=== PATIENT | female | born 1995 | race Caucasian/White ===

== ENCOUNTER → 2017-10-16 15:00 | Outpatient (CLI) | payer BC, SELFPAY ==
--- NOTE | 2017-10-16 15:03 | RAD_ITS ---
STUDY: X-RAY - RIGHT RADIUS AND ULNA REASON FOR EXAM: Female, 22 years old. Pain following a fall. TECHNIQUE: 2 view(s) of the forearm. COMPARISON: None. FINDINGS: There is no demonstrated soft tissue swelling. Normal visualized radius. Normal visualized ulna. RAD/Forearm 2 Views IMPRESSION: Normal x-ray examination of the radius and ulna. Electronically Signed: Ralph Terrazas MD at 15:19 EDT Tel [phone], Service support ,
--- NOTE | 2017-10-16 15:03 | RAD_ITS ---
STUDY: X-RAY - RIGHT WRIST REASON FOR EXAM: Female, 22 years old. Pain following a fall. TECHNIQUE: 3 view(s) of the wrist were obtained. COMPARISON: None. FINDINGS: Normal visualized distal radius and ulna. Normal radiocarpal articulation. Normal distal radioulnar articulation. Normal carpal bones. Normal carpal articulations. Normal carpometacarpal articulation of the thumb. Normal second through fifth carpometacarpal articulations. Normal visualized metacarpal bones. The soft tissue structures are unremarkable. RAD/Wrist min 3 Views IMPRESSION: Normal x-ray examination of the wrist. Electronically Signed: Ralph Terrazas MD at 15:20 EDT Tel [phone], Service support ,
== END ==
PROVIDERS: Family Provider Family Medicine; PCP Family Medicine; Visit Provider Physician Assistant Surgical
DX: S40.021A Contusion of right upper arm, initial encounter (principal)
CPT/HCPCS: 73090; 73110

== ENCOUNTER → 2018-01-30 14:48 | Outpatient (CLI) | payer BC, SELFPAY ==
[2018-02-05 13:22] LABS: HPV Reflexed? NOT INDICATED
== END ==
PROVIDERS: Visit Provider Obstetrics & Gynecology
DX: Z12.4 Encounter for screening for malignant neoplasm of cervix (principal)
CPT/HCPCS: 88175; G0145

== ENCOUNTER → 2018-12-17 14:02 | Outpatient (CLI) | payer BC, SELFPAY ==
[2018-12-16 16:26] VITALS: BMI 27.3
== END ==
PROVIDERS: Family Provider Family Medicine; PCP Family Medicine; Referring Provider Physician Assistant; Visit Provider Physician Assistant
DX: J02.9 Acute pharyngitis, unspecified (principal)
CPT/HCPCS: 87081

== ENCOUNTER → 2020-08-07 10:03 | Outpatient (CLI) | payer BC, SELFPAY ==
[2020-02-26 15:07] VITALS: BMI 27.3
[2020-08-07 11:22] LABS: hCG Titer Quant., Serum 101 mIU/mL (1-3)
== END ==
PROVIDERS: PCP Family Medicine; Referring Provider Obstetrics & Gynecology; Visit Provider Obstetrics & Gynecology
DX: Z32.01 Encounter for pregnancy test, result positive (principal); N92.6 Irregular menstruation, unspecified
CPT/HCPCS: 36415; 84702

== ENCOUNTER → 2020-08-09 10:13 | Outpatient (CLI) | payer BC, SELFPAY ==
[2020-02-26 15:07] VITALS: BMI 27.3
[2020-08-09 12:20] LABS: hCG Titer Quant., Serum 278 mIU/mL (1-3)
== END ==
PROVIDERS: PCP Family Medicine; Referring Provider Obstetrics & Gynecology; Visit Provider Obstetrics & Gynecology
DX: N92.6 Irregular menstruation, unspecified (principal)
CPT/HCPCS: 36415; 84702

== ENCOUNTER → 2020-08-21 11:18 | Outpatient (CLI) | payer BC, SELFPAY ==
[2020-02-26 15:07] VITALS: BMI 27.3
[2020-08-21 12:39] LABS: hCG Titer Quant., Serum 31190 mIU/mL (1-3)
== END ==
PROVIDERS: PCP Family Medicine; Referring Provider Nurse Practitioner Women's Health; Visit Provider Nurse Practitioner Women's Health
DX: O20.9 Hemorrhage in early pregnancy, unspecified (principal); Z3A.00 Weeks of gestation of pregnancy not specified
CPT/HCPCS: 36415; 84702

== ENCOUNTER → 2020-08-23 13:26 | Outpatient (CLI) | payer BC, SELFPAY ==
[2020-02-26 15:07] VITALS: BMI 27.3
--- NOTE | 2020-08-23 13:30 | US_ITS ---
INDICATION: viability/dating EXAMINATION: Ultrasound US OB Transvaginal TECHNIQUE: Transabdominal pelvic ultrasound was performed. Grayscale, spectral waveform, and color flow Doppler evaluation of the adnexa. COMPARISON: None. LMP: [Unknown Beta-hCG: Unknown FINDINGS: UTERUS: 8.7 x 6.0 x 4.8 cm. RIGHT OVARY: 2.4 x 1.8 x 1.6 cm. Normal. LEFT OVARY: 2.5 x 2.2 x 1.7 cm. Normal. FREE FLUID: None. INTRAUTERINE GESTATIONAL SAC: 1.9 cm, consistent with 6 weeks 5 days, mean gestational age. YOLK SAC: Identified 3 mm POLE: Identified CRL 4 mm, consistent with 6 weeks 1 day, mean gestational age. HEART MOTION: 101 bpm. PLACENTA: Not visualized due to age. SUBCHORIONIC HEMORRHAGE: None. AMNIOTIC FLUID: Qualitatively normal. US/Transvaginal w/Preg US IMPRESSION: Single live intrauterine . Estimated gestational age is 6 weeks 3 days mean gestational age.. Electronically Signed: Finn Borjas MD at 14:33 EDT Tel , Service support ,
== END ==
PROVIDERS: PCP Family Medicine; Referring Provider Nurse Practitioner Women's Health; Visit Provider Nurse Practitioner Women's Health
DX: O20.0 Threatened abortion (principal); Z3A.00 Weeks of gestation of pregnancy not specified
CPT/HCPCS: 36415; 76817; 86850; 86900; 86901

== ENCOUNTER → 2020-09-09 15:54 | Outpatient (CLI) | payer BC, SELFPAY ==
[2020-09-09 14:33] VITALS: BMI 32.4
[2020-09-09 18:04] LABS: Amphetamine Urine VISTA NEGATIVE (<1000 ng/mL); Barbiturate Urine VISTA NEGATIVE (< 200 ng/mL); Benzodiazepine Urine VISTA NEGATIVE (< 200 ng/mL); Cocaine Urine VISTA NEGATIVE (< 300 ng/mL); Ecstacy Urine VISTA NEGATIVE (< 500 ng/mL); Methadone Urine VISTA NEGATIVE (< 300 ng/mL); PCP Urine VISTA NEGATIVE (< 25 ng/mL); THC Urine VISTA NEGATIVE (< 50 ng/mL); Vista UDS pH Range 6
[2020-09-13 07:06] LABS: Chlamydia By Nucleic Acid AMP Negative (Negative)
[2020-09-13 07:50] LABS: Gonococcus By Nucleic Acid AMP Negative (Negative)
== END ==
PROVIDERS: PCP Family Medicine; Referring Provider Obstetrics & Gynecology; Visit Provider Obstetrics & Gynecology
DX: Z34.90 Encounter for supervision of normal pregnancy, unspecified, unspecified trimester (principal)
CPT/HCPCS: 80307; 87086; 87491; 87591

== ENCOUNTER → 2020-09-24 10:07 | Outpatient (CLI) | payer BC, SELFPAY ==
[2020-09-09 14:33] VITALS: BMI 32.4
[2020-09-24 11:23] LABS: NATERA MAILED SPECIMEN
[2020-09-24 12:04] LABS: Absolute Lymphocyte Count 1.55 X10^3/uL (0.83-4.51); Absolute Neutrophil Count 4.9 X10^3/uL (2.0-7.7); Basophil# 0.02 X10^3/uL; Basophil% 0.3 % (0-1); Eosinophil# 0.14 X10^3/uL; Hematocrit 38.3 % (37-47); Hemoglobin 12.7 g/dL (12.0-15.0); Lymphocyte # 1.55 X10^3/ul (0.83-4.51); Lymphocyte % 22.1 % (19-41); Mean Corp Hgb Conc 33.2 g/dL (32-36); Mean Corpuscular Hgb 29.3 pg (27.0-32.0); Mean Corpuscular Volume 88.5 fL (81-99); Monocyte# 0.37 X10^3/uL; Monocyte% 5.3 % (0-10); NRBC Flagged by Analyzer 0 % (0-5); Neutrophil # 4.92 X10^3/uL (2.7-7.7); Neutrophil % 70.2 % (47-70); Platelet Count 246 K/mm3 (150-450); RBC Distribution Width CV 12.6 % (11.6-14.6); RBC Distribution Width SD 41.1 fl (35.1-43.9); Red Blood Count 4.33 M/mm3 (4.2-5.4)
[2020-09-24 12:21] LABS: Glucose Challenge Gest 1H 50g 157 mg/dL (70-140)
[2020-09-24 13:09] LABS: HIV - WCH Non-Reactive (Nonreactive); Hepatitis B Surface Antigen Non-Reactive (Nonreactive); Hepatitis C Antibody Non-Reactive (Nonreactive); Rubella IgG Reactive (Nonreactive); Syphilis Antibodies Non-reactive
== END ==
PROVIDERS: Obstetrics & Gynecology; PCP Family Medicine; Referring Provider Obstetrics & Gynecology; Visit Provider Obstetrics & Gynecology
DX: Z34.90 Encounter for supervision of normal pregnancy, unspecified, unspecified trimester (principal)
CPT/HCPCS: 36415; 82950; 85025; 86703; 86762; 86780; 86803; 86850; 86900; 86901; 87340

== ENCOUNTER → 2020-09-30 06:54 | Outpatient (CLI) | payer BC, SELFPAY ==
[2020-09-09 14:33] VITALS: BMI 32.4
[2020-09-30 08:11] LABS: Glucose GTT-Gestation. Fasting 92 mg/dL (<105)
[2020-09-30 09:23] LABS: Glucose GTT-Gestational 1 Hr 185 mg/dL (<190)
[2020-09-30 09:50] LABS: Glucose GTT-Gestational 2 Hr 126 mg/dL (<165)
[2020-09-30 11:40] LABS: Glucose GTT-Gestational 3 Hr 61 L (<145)
== END ==
PROVIDERS: PCP Family Medicine; Referring Provider Obstetrics & Gynecology; Visit Provider Obstetrics & Gynecology
DX: Z13.1 Encounter for screening for diabetes mellitus (principal)
CPT/HCPCS: 36415; 82951; 82952

== ENCOUNTER → 2021-01-03 17:55 | Outpatient (CLI) | payer BC, SELFPAY ==
[2020-12-30 14:31] VITALS: BMI 32.4
[2021-01-03 19:42] LABS: Probe Check PASS; Specimen Processing Control PASS
== END ==
PROVIDERS: PCP Family Medicine; Referring Provider Family Medicine; Visit Provider Family Medicine
DX: B34.9 Viral infection, unspecified (principal)
CPT/HCPCS: 87635; U0005; U0003

== ENCOUNTER → 2021-01-19 06:42 | Outpatient (CLI) | payer BC, SELFPAY ==
[2021-01-19 07:34] LABS: Glucose GTT-Gestation. Fasting 92 mg/dL (<105)
[2021-01-19 08:46] LABS: Glucose GTT-Gestational 1 Hr 203 mg/dL (<190)
[2021-01-19 09:36] LABS: Glucose GTT-Gestational 2 Hr 173 mg/dL (<165)
[2021-01-19 11:17] LABS: Glucose GTT-Gestational 3 Hr 65 L (<145)
== END ==
PROVIDERS: PCP Family Medicine; Referring Provider Obstetrics & Gynecology; Visit Provider Obstetrics & Gynecology
DX: O99.810 Abnormal glucose complicating pregnancy (principal); Z3A.00 Weeks of gestation of pregnancy not specified
CPT/HCPCS: 82951; 82952

== ENCOUNTER 2021-02-08 14:30 | Outpatient (RCR) | payer BC, SELFPAY | END 2021-02-17 23:59 | LOC: DC 14:30 | PROVIDERS: PCP Family Medicine; Visit Provider Obstetrics & Gynecology | DX: O24.419 Gestational diabetes mellitus in pregnancy, unspecified control (principal); Z3A.00 Weeks of gestation of pregnancy not specified | CPT/HCPCS: 97802; G0108 ==

== ENCOUNTER → 2021-02-11 16:32 | Outpatient (CLI) | payer BC, SELFPAY ==
[2021-02-11 17:00] LABS: Absolute Lymphocyte Count 2.38 X10^3/uL (0.83-4.51); Absolute Neutrophil Count 8.9 X10^3/uL (2.0-7.7); Basophil# 0.03 X10^3/uL; Basophil% 0.2 % (0-1); Eosinophil# 0.29 X10^3/uL; Eosinophils% 2.3 % (0-5); Hematocrit 34.6 % (37-47); Hemoglobin 11.3 g/dL (12.0-15.0); Lymphocyte # 2.38 X10^3/ul (0.83-4.51); Lymphocyte % 18.9 % (19-41); Mean Corp Hgb Conc 32.7 g/dL (32-36); Mean Corpuscular Hgb 29.8 pg (27.0-32.0); Mean Corpuscular Volume 91.3 fL (81-99); Mean Platelet Vol. 9.1 fl (6.2-12.0); Monocyte# 0.87 X10^3/uL; Monocyte% 6.9 % (0-10); NRBC Flagged by Analyzer 0 % (0-5); Neutrophil # 8.94 X10^3/uL (2.7-7.7); Neutrophil % 71.3 % (47-70); Platelet Count 246 K/mm3 (150-450); RBC Distribution Width CV 13.4 % (11.6-14.6); RBC Distribution Width SD 44.6 fl (35.1-43.9); Red Blood Count 3.79 M/mm3 (4.2-5.4); White Blood Count 12.6 K/mm3 (4.4-11.0)
== END ==
PROVIDERS: PCP Family Medicine; Visit Provider Obstetrics & Gynecology
DX: Z34.01 Encounter for supervision of normal first pregnancy, first trimester (principal)
CPT/HCPCS: 36415; 85025

== ENCOUNTER → 2021-02-25 16:05 | Outpatient (CLI) | payer BC, SELFPAY ==
--- NOTE | 2021-02-25 16:10 | US_ITS ---
STUDY: SECOND AND THIRD TRIMESTER OBSTETRICAL ULTRASOUND - LIMITED REASON FOR EXAM: Female, 25 years old. growth. LMP: 07/02/2019 PRIOR ULTRASOUND: 08/23/2020 TECHNIQUE: Transabdominal TECHNICAL QUALITY: Adequate. FINDINGS: There is a single intrauterine fetus. The fetus is in a cephalic presentation. There is demonstrated cardiac activity with a heart rate of 136 bpm. There is a normal amniotic fluid volume. The largest amniotic fluid pocket measures 4.72 cm. The amniotic fluid index (THIAGO) is 12.92 cm. The placenta is posterior in location and is not low lying. There are Grade 0 placental changes. The cervix measures 4.78 cm cm in length. BIOMETRY: BPD: 8.46 cm: 34 weeks, 0 days HC: 31.25 cm: 34 weeks, 6 days AC: 28.86 cm: 32 weeks, 6 days FL: 6.18 cm: 32 weeks, 0 days age by LMP: 34 weeks, 0 days. RAYMOND by LMP. 04/08/2021 age by prior US: 33 weeks, 0 days. RAYMOND by prior US: 07/16/2020. age by current US: 33 weeks, 3 days. RAYMOND by current US: 04/12/2021. Estimated weight: 2079 grams, +/- 320 grams, 47 percentile. Gender: Indeterminant US/OB Limited With Biometrics IMPRESSION: 1. Live single intrauterine at 33 weeks, 3 days. RAYMOND is 04/12/2021. There is adequate interval growth since the prior ultrasound. 2. EFW of 2079 g. 3. THIAGO of 12.92 cm. 4. Posterior grade 0 placenta. 5. Vertex presentation. Electronically Signed: Donnie Desai DO at 17:15 EDT Tel [phone], Service support ,
== END ==
PROVIDERS: PCP Family Medicine; Referring Provider Obstetrics & Gynecology; Visit Provider Obstetrics & Gynecology
DX: O24.410 Gestational diabetes mellitus in pregnancy, diet controlled (principal); Z3A.33 33 weeks gestation of pregnancy
CPT/HCPCS: 76816

== ENCOUNTER → 2021-03-16 12:12 | Outpatient (CLI) | payer BC, SELFPAY | PROVIDERS: PCP Family Medicine; Visit Provider Obstetrics & Gynecology | DX: O26.899 Other specified pregnancy related conditions, unspecified trimester (principal); N89.8 Other specified noninflammatory disorders of vagina; Z3A.00 Weeks of gestation of pregnancy not specified | CPT/HCPCS: 87070; 87077; 87186; 87205 ==

== ENCOUNTER → 2021-03-25 17:01 | Outpatient (CLI) | payer BC, SELFPAY ==
--- NOTE | 2021-03-25 17:06 | US_ITS ---
STUDY: SECOND AND THIRD TRIMESTER OBSTETRICAL ULTRASOUND - LIMITED REASON FOR EXAM: Female, 25 years old GROWTH LMP: 07/02/2019. PRIOR ULTRASOUND: 08/23/2020 and 02/26/2012. TECHNIQUE: Transabdominal TECHNICAL QUALITY: Adequate. FINDINGS: There is a single intrauterine fetus. The fetus is in a cephalic presentation. There is demonstrated cardiac activity with a heart rate of 121 bpm. There is a normal amniotic fluid volume. The largest amniotic fluid pocket measures 7.67 cm. The amniotic fluid index (THIAGO) is 18.33 cm. The placenta is posterior in location and is not low lying. There are Grade 0 placental changes. The cervix is obscured. BIOMETRY: BPD: 9.31 cm: 37 weeks, 5 days HC: 32.84 cm: 37 weeks, 2 days AC: 33.24 cm: 37 weeks, 1 days FL: 6.75 cm: 34 weeks, 4 days Age by LMP: 38 weeks, 0 days. RAYMOND by LMP: 04/08/2021. age by initial US: 37 weeks, 0 days. RAYMOND by initial US: 04/15/2021. age by current US: 37 weeks, 1 days. RAYMOND by current US: 04/14/2021. Estimated weight: 3026 grams, +/- 454 grams, 56 percentile. Gender: Indeterminant US/OB Limited With Biometrics IMPRESSION: 1. Live single intrauterine at 37 weeks, 1 day. RAYMOND is 04/14/2021. There is adequate interval growth since the initial ultrasound. 2. EFW of 3026 g. This is at the 54th percentile. 3. THIAGO of 18.33 cm. 4. Posterior grade 0 placenta. 5. Vertex presentation. Electronically Signed: Donnie Desai DO at 15:57 EDT Tel [phone], Service support ,
== END ==
PROVIDERS: PCP Family Medicine; Referring Provider Obstetrics & Gynecology; Visit Provider Obstetrics & Gynecology
DX: O36.5930 Maternal care for other known or suspected poor fetal growth, third trimester, not applicable or unspecified (principal); Z3A.37 37 weeks gestation of pregnancy
CPT/HCPCS: 76816

== ENCOUNTER 2021-04-06 03:00 | Inpatient (IN) | payer BC, SELFPAY ==
[2021-04-06] VITALS (85 sets, daily range): BP systolic 118–179; BP diastolic 59–94; PULSE 86–135; TEMP 35.7–37.3; O2SAT 73–100; BMI 35.9
[2021-04-06] MEDS: Lactated Ringers 1,000 ML 50 ML IV (03:25)
[2021-04-06 03:26] LABS: Bedside Glucose 98 mg/dL (70-110)
[2021-04-06 03:49] LABS: Absolute Lymphocyte Count 2.57 X10^3/uL (0.83-4.51); Absolute Neutrophil Count 7.8 X10^3/uL (2.0-7.7); Basophil# 0.02 X10^3/uL; Basophil% 0.2 % (0-1); Eosinophils% 2.6 % (0-5); Hematocrit 32.6 % (37-47); Hemoglobin 10.6 g/dL (12.0-15.0); Lymphocyte # 2.57 X10^3/ul (0.83-4.51); Lymphocyte % 22.3 % (19-41); Mean Corp Hgb Conc 32.5 g/dL (32-36); Mean Corpuscular Hgb 28.9 pg (27.0-32.0); Mean Corpuscular Volume 88.8 fL (81-99); Mean Platelet Vol. 9.9 fl (6.2-12.0); Monocyte# 0.81 X10^3/uL; NRBC Flagged by Analyzer 0 % (0-5); Neutrophil # 7.77 X10^3/uL (2.7-7.7); Neutrophil % 67.4 % (47-70); Platelet Count 223 K/mm3 (150-450); RBC Distribution Width CV 14.1 % (11.6-14.6); RBC Distribution Width SD 45.6 fl (35.1-43.9); Red Blood Count 3.67 M/mm3 (4.2-5.4); White Blood Count 11.5 K/mm3 (4.4-11.0)
--- NOTE | 2021-04-06 05:23 | HP.PCM.OB_ITS ---
HPI - General General Date of Admission: 04/06/21 HPI Narrative HENRRY ESCAMILLA, is a 25 F who presents IAL with clear SROM. Upon evaluation she was 2 cm and then may change to 3. She is having irregular contractions with clear fluid denies any vaginal bleeding admits good movement. Blood sugars within normal range. Maternal Data Information RAYMOND Calculator Estimated Delivery Date Method Current WG Current Estimate 04/17/21 Ultrasound #1 38w 3d Other Estimates 04/08/21 LMP (Uncertain) 39w 5d PFSH PFSH Medical History Anxiety Gestational diabetes Positive GBS test PVC (premature ventricular contraction) Home Medications multivitamin no.47-iron fum 27 mg-folate no.1 1 mg-dha 300 mg capsule 1 cap PO DAILY 09/03/20 [History Last Taken 04/05/21] flash glucose sensor [FreeStyle Adeel 2 Sensor] 04/06/21 [History Last Taken Unknown] Allergy/AdvReac Type Severity Reaction Status Date / Time No Known Allergies Allergy Verified 03/16/21 10:44 Family History Sister Cancer Thyroid Other A-fib Diabetes Multiple sclerosis Surgical History H/O lymph node biopsy Social History household members: spouse housing: house current occupational status: employed current occupation: [employer] in [place] Smoking Status: Never smoker second hand exposure: No alcohol intake: current alcohol intake frequency: a few times a month details: social substance use type: does not use caffeine: Yes what type of physical activity do you participate in: walking seatbelt use: always do you feel safe at home: Yes additional social history: Guadalupe Ambrocio Patient is an RN for [employer] History 1 Elective abortions Hx Para 0 Spontaneous abortions Hx # Term Pregnancies Ectopic pregnancies Hx # Pregnancies Multiple births # of living children Visit Details Expected Delivery Route/Plan Labor Preferences- CB/BF classes:yes labor support person: mariela barber labor intervention preferences: pain management options preferred: open to epidural cut cord/dad catch: yes : yes PP control planned: [] discussed possible routes of delivery and associated risks: [] special requests: [] Plans covid vaccine: moderna flu vaccine: given tdap vaccine: given rhogam: na LARC form signed: declined movement and labor precautions reviewed. Problem list reviewed and updated with the most current plan of care details and appropriate orders placed. Relevant counseling for the gestational age provided. Continue routine care and follow up unless otherwise noted in visit notes/problem list details OB Flowsheet Initial Weight: 195 lb Date -?-?-?-?-?-?-?-?-?-?-?-?- EGA Weight BP Urine Prot -?-?-?-?-?-?-?-?-?-?-?-?- Glucose FHR FuHt Pres Dilation -?-?-?-?-?-?-?-?-?-?-?-?- Effaced St Visit Note 09/09/20 -?-?-?-?-?-?-?-?-?-?-?-?- 8w 4d 195 lb (+0 oz) 122/90 -?-?-?-?-?-?-?-?-?-?-?-?- 180 -?-?-?-?-?-?-?-?-?-?-?-?- GP - CRL consist ent with prior US. 10/04/20 -?-?-?-?-?-?-?-?-?-?-?-?- 12w 1d 195 lb 2 oz (+2 oz) 100/80 Negative -?-?-?-?-?-?-?-?-?-?-?-?- Negative -?-?-?-?-?-?-?-?-?-?-?-?- 11/05/20 -?-?-?-?-?-?-?-?-?-?-?-?- 16w 5d 196 lb 8 oz (+1 lb 8 oz) 118/70 Negative -?-?-?-?-?-?-?-?-?-?-?-?- Negative 150 -?-?-?-?-?-?-?-?-?-?-?-?- SM- no vb lof cr amping, needs anatomy US 12/03/20 -?-?-?-?--?-?-?-?-?-?-?-?- 20w 5d 199 lb (+4 lb) 122/80 Negative -?-?-?-?-?-?-?-?-?-?-?-?- Negative 150 -?-?-?-?-?-?-?-?-?-?-?-?- GP - no LOF, VB, DFM, ctx. Prescribed zofran and scopolamine because going to [place] and worried about motion sickness. 12/30/20 -?-?-?-?-?-?-?-?-?-?-?-?- 24w 4d 202 lb (+7 lb) 102/80 -?-?-?-?-?-?-?-?-?-?-?-?- 140 24 -?-?-?-?-?-?-?-?-?-?-?-?- GP - no LOF, VB, DFM, ctx. Repeat 3h GCT and CBC ordered. 01/28/21 -?-?-?-?-?-?-?-?-?-?-?-?- 28w 5d 208 lb (+13 lb) 120/84 -?-?-?-?-?-?-?-?-?-?-?-?- 135 30 -?-?-?--?-?-?-?-?-?-?-?-?- SM- no vb lof go od fm nor egular ctx BS wel lcontrolled. 02/11/21 -?-?-?-?-?-?-?-?-?-?-?-?- 30w 5d 207 lb 4 oz (+12 lb 4 oz) 130/88 Negative -?-?-?-?-?-?-?-?-?-?-?-?- Negative 130 31 -?-?-?-?-?-?-?-?-?-?-?-?- GP - no LOF, VB, DFM, ctx. Discussed growth US with GDM and typical timing of delivery. 02/25/21 -?-?-?-?-?-?-?-?-?-?-?-?- 32w 5d 211 lb (+16 lb) 100/64 -?-?-?-?-?-?-?-?-?-?-?-?- 130 33 -?-?-?-?-?-?-?-?-?-?-?-?- GP - no LOF, VB, DFM, ctx. Growth US today. BGTs remain well controlled with diet. 03/10/21 -?-?-?-?-?-?-?-?-?-?-?-?- 34w 4d 212 lb 4 oz (+17 lb 4 oz) 130/86 Negative -?-?-?-?-?-?-?-?-?-?-?-?- Negative 130 135 35 -?-?-?-?-?-?-?-?-?-?-?-?- SM- no vb lof go od fm no reuglar ctx 03/16/21 -?-?-?-?-?-?-?-?-?-?-?-?- 35w 3d 217 lb (+22 lb) 138/84 Negative -?-?-?-?-?-?-?-?-?-?-?-?- Negative 145 36 Cephalic -?-?-?-?-?-?-?-?-?-?-?-?- 0 JV- no v aginal bleeding, +vaginal discharge without odor. Vaginitis screen ordered. Pt reassured of physiologic discharge. GBS next visit. 03/21/21 -?-?-?-?-?-?-?-?-?-?-?-?- 36w 1d 218 lb (+23 lb) 138/100 122/84 -?-?-?-?-?-?-?-?-?-?-?-?- 135 37 Cephalic 1 -?-?-?-?-?-?-?-?-?-?-?-?- SM- no vb lof go od fm nor egular ctx 03/30/21 -?-?-?-?-?-?-?-?-?-?-?-?- 37w 3d 222 lb (+27 lb) 122/84 Negative -?-?-?-?-?-?-?-?-?-?-?-?- Negative 135 38 Cephalic 1 -?-?-?-?-?-?-?-?-?-?-?-?- SM- no vb lof go od fm no reuglar ctx 04/06/21 -?-?-?-?-?-?-?-?-?-?-?-?- 38w 3d 223 lb (+28 lb) 139/92 146/91 -?-?-?-?-?-?-?-?-?-?-?-?- -?-?-?-?-?-?-?-?-?-?-?-?- NST FHR Rate Baby A Baseline: 130 Variability:: Moderate Accelerations:: 15 x 15 Decelerations:: None NST Reactive:: Yes FHR Category:: Category I Uterine Activity:: q3-5 ROS Constitutional Constitutional: Reports systems reviewed and no addt'l complaints, except as documented ENT HEENT: Reports systems reviewed and no addt'l complaints, except as documented Cardiovascular Cardiovascular: Reports systems reviewed and no addt'l complaints, except as documented Respiratory/Chest Respiratory/Chest: Reports systems reviewed and no addt'l complaints, except as documented Gastrointestinal Gastrointestinal: Reports systems reviewed and no addt'l complaints, except as documented and nausea; Denies abdominal pain Genitourinary Genitourinary: Reports systems reviewed and no addt'l complaints, except as documented, contractions Details: present and frequency (regular ) and movement Details: present Musculoskeletal Musculoskeletal: Reports systems reviewed and no addt'l complaints, except as documented Integumentary Integumentary: Reports as per HPI Neurologic Neurologic: Reports systems reviewed and no addt'l complaints, except as documented Endocrine Endocrinology: Reports systems reviewed and no addt'l complaints, except as documented Vital Signs Vital Signs Vital Signs: 04/06/21 02:50 04/06/21 03:14 04/06/21 03:15 Temperature Temperature Source Temporal Pulse Rate 96 93 98 Blood Pressure 139/92 H 146/91 H BP Systolic 139 146 BP Diastolic 92 91 Pulse Ox 99 04/06/21 03:16 Temperature 98.6 F Temperature Source Pulse Rate Blood Pressure BP Systolic BP Diastolic Pulse Ox Weight Weight: 223 lb Body Mass Index (BMI) 35.9 Physical Exam Const alert, oriented x3 and healthy appearing Constitutional Narrative: uncomfortable with contractions HEENT normocephalic and moist oral mucous membranes Head and Scalp: atraumatic Neck full ROM, no lymphadenopathy, supple and thyroid normal General: trachea midline Thyroid: thyroid normal Lymph Lymphatic: no lymphadenopathy noted Chest inspection of chest normal Resp normal respiratory effort Cardio regular rate GI normal to inspection, nondistended, normoactive bowel sounds, soft to palpation and non-tender Inspection: gravid external exam normal Bimanual Exam - Vag & Uterus: uterus non-tender Manual OB Exam: estimated gestational size appropriate, presentation cephalic, dilated 3, effaced 70 and station -1 Extremity normal to inspection General Extremity: Negative for edema Skin no rashes or lesions noted Neuro deep tendon reflexes 2+ bilaterally Motor Exam: strength 5/5 throughout and clonus absent Psych mental status grossly normal Labs Labs Labs: Blood Type O POSITIVE Antibody Screen NEGATIVE Hct 32.6 % (37-47) L Hgb 10.6 g/dL (12.0-15.0) L Obstetrics US Syphilis Total Ab Non-reactive VZV IgG Antibody 0.94 index (Immune >1.09-) L Rubella IgG Antibody Reactive (Nonreactive) Hep Bs Antigen Non-Reactive (Nonreactive) Neisseria gonorrhoeae DNA (SANDRA) Negative (Negative) HIV 1&2 Antibody Non-Reactive (Nonreactive) Glucose 1 Hr 50 gm 157 mg/dL (70-140) H Assessment & Plan (1) Group beta Strep positive: COMMENT: pcn planned (2) Gestational diabetes: QUALIFIERS: Gestational diabetes mellitus control: diet-controlled Trimester: third trimester Qualified Code(s): O24.410 - Gestational diabetes mellitus in , diet controlled COMMENT: Follows with Dr. Leiva. Diet controlled. Growths ordered at 32 and 36w. 03/26 growth/THIAGO nl plan IOL 04/18 (3) Supervision of normal : QUALIFIERS: Normal : normal first Trimester: first trimester Qualified Code(s): Z34.01 - Encounter for supervision of normal first , first trimester COMMENT: PRR RAYMOND: 04/17/21 cisco Mason Spouse: Naomibalaji (4) : QUALIFIERS: Weeks of gestation: 37 weeks Qualified Code(s): Z3A.37 - 37 weeks gestation of COMMENT: nl genetics (male) , declines carrier and afp; NL anatomy (5) Anxiety: COMMENT: currently not on medication (6) SROM (spontaneous rupture of membranes): COMMENT: admit IAL, Pit PRN, Epi PRN. monitor blood sugars q 4 hr latent q 1 hr active
[2021-04-06] MEDS: Penicillin G 3,000,000 Units 50 ML 100 UNITS IV ×4 (08:09→20:18)
[2021-04-06] MEDS: Oxytocin 30 units/NS 500 ml 30 UNITS/500 ML IV.SOLN IV (09:43)
[2021-04-06] MEDS: Lactated Ringers 500 ML 999 ML IV (11:23)
--- NOTE | 2021-04-06 12:50 | PCM.PN.BLA ---
Progress Note pt is sitting up in bed talking through contractions. The nurse reports that she seems to be getting a little more painful and bp is slightly elevated. Pitocin is now a 8 mu/min current tracing: FHT: 140 Moderate variability reactive no decelerations category I tracing [place]: irregular Contractions reviewed tracing abnormalities since last note: none A/P: 38 weeks SROM, GBS pos -continue pnc -continue pitocin. IUPC as needed. pt is making cervical exam since this am. she is now 5-6 cm per the nurse and is due for a repeat vaginal exam in an hour.
[2021-04-06] MEDS: fentaNYL-bupivacaine (epidural) 100 ML BAG EPIDURAL ×2 (12:52→21:45)
[2021-04-06] MEDS: Lactated Ringers 1,000 ML 200 ML IV (15:29)
[2021-04-06] MEDS: 0.9% Saline Lock 10 ML Syringe IV (16:56)
--- NOTE | 2021-04-06 20:34 | PN_ITS ---
Progress Note patient is pushing and tolerating labor well. no complaints. current tracing: FHT: 150's Mild variability, early decels, category 2 tracing [place]: q2 min Contractions cx: complete/ caput +2 station reviewed tracing abnormalities since last note: changes noted and expected A/P: 38 weeks pprom, complete anticipate soon
[2021-04-06] MEDS: Oxytocin 30 units/NS 500 ml 30 UNITS/500 ML IV.SOLN 334 UNITS IV (22:29)
--- NOTE | 2021-04-06 22:38 | OP.PCM_ITS ---
Maternal Data Information RAYMOND Calculator Estimated Delivery Date Method Current WG Current Estimate 04/17/21 Ultrasound #1 38w 3d Other Estimates 04/08/21 LMP (Uncertain) 39w 5d Vaginal Delivery Maternal Presentation Maternal Presentation: Spontaneous Rupture of Membranes Type of Induction: Pitocin Operative Information Date of Procedure: 04/06/21 Pre-Operative Diagnosis: 38 weeks 3 days , PROM, gestational diabetes Post-Operative Diagnosis: 38 weeks 3 days , PROM, gestational diabetes Surgery / Procedure Performed: Spontaneous Vaginal Delivery Type of Anesthesia: Epidural Drain: Mercado to straight drain Estimated Blood Loss: 100cc Time of Delivery: 22:39 Findings Description of Procedure: Patient began pushing and delivered the head in the OA presentation. The head was delivered atraumatically. The anterior and posterior shoulders delivered without complication followed by the rest of the infant and the infant was placed on the maternal abdomen. Delayed cord clamping was employed for approximately 60 seconds. Cord was clamped and cut and gentle traction was applied to the cord and the placenta delivered spontaneously immediately following it was noted to be intact with three-vessel cord. The perineum and vagina were inspected and noted to have a 1st degree perineal laceration that was repaired wiht a 2-0 vicryl suture EBL was 100 cc. Patient and tolerated delivery well. Presentation: Vertex Amniotic Membrane Rupture Type: Spontaneous Amniotic Fluid Description: Clear Placental Delivery Description: Spontaneous Placenta Disposition: [facility] Cord Vessel Description: 3 Vessels Cord Entanglement: None A Gender: Male (1 minute): 8 (5 minute): 9 Delayed Cord Clamping: Yes Post Vaginal Delivery Medications Given After Delivery: IV Pitocin Episiotomy Description: None Laceration: Midline and 1st degree Complication Complications: None Procedures Urinary/Genital [id number]: [id number] Vaginal Delivery [facility]
[2021-04-07] VITALS (8 sets, daily range): BP systolic 128–145; BP diastolic 73–95; PULSE 91–108; RESP 16–18; TEMP 36.4–36.7; O2SAT 96–99
[2021-04-07] MEDS: Acetaminophen 500 MG Tablet 1000 MG PO ×2 (00:35→12:36)
--- NOTE | 2021-04-07 08:36 | PCM.PN.OB ---
Subjective Subjective Patient doing well without complaints. Tolerating PO. Ambulating and voiding without difficulty. Feeding well. Denies chest pain, shortness of breath, calf pain/swelling, fevers, chills, lightheadedness. Objective Data Objective Data Vital Signs: Vital Signs Temp Pulse Resp BP Pulse Ox 98.1 F 91 16 130/86 H 97 04/07/21 04:00 04/07/21 04:00 04/07/21 04:00 04/07/21 04:00 04/06/21 23:31 Oxygen Delivery Method Room Air Weight: 223 lb Body Mass Index (BMI) 35.9 Intake & Output: Intake and Output for Last 24 Hours 04/05/21 04/06/21 04/07/21 23:59 23:59 23:59 Intake Total 3840.16 / 3840.16 333 / 333 Output Total 875 / 875 300 / 300 Balance 2965.16 / 2965.16 33 / 33 Lab / Micro Data Result Diagrams: 04/06/21 03:25 Labs: Laboratory Results - last 24 hr 04/06/21 03:25: WBC 11.5 H, RBC 3.67 L, Hgb 10.6 L, Hct 32.6 L, MCV 88.8, MCH 28.9, MCHC 32.5, RDW Std Deviation 45.6 H, RDW Coeff of Jyoti 14.1, Plt Count 223, MPV 9.9, Immature Gran % (Auto) 0.500, Neut % (Auto) 67.4, Lymph % (Auto) 22.3, Simpson % (Auto) 7.0, Eos % (Auto) 2.6, Baso % (Auto) 0.2, Absolute Neuts (auto) 7.8 H, Absolute Lymphs (auto) 2.57, Nucleated RBC % 0 04/06/21 03:25: Blood Type O POSITIVE, Antibody Screen NEGATIVE Micro: Microbiology 04/06/21 05:30 Nasal Secretion SARS-CoV-2 Antigen (Rapid) - Final ROS Constitutional Constitutional: Denies chills, fatigue, fever(s), poor appetite or weakness Eyes Eyes: Denies blurry vision, change in vision, seeing flashes or spots in vision ENT HEENT: Denies dizziness, headache(s), loss taste/smell or sore throat Cardiovascular Cardiovascular: Denies chest pain, dizziness, dyspnea, irregular heart rhythm, palpitations or rapid heart rate Respiratory/Chest Respiratory/Chest: Denies chest tightness, cough, dyspnea or breast pain Gastrointestinal Gastrointestinal: Denies abdominal pain, constipation or vomiting Genitourinary Genitourinary: Denies dysuria or flank pain Musculoskeletal Musculoskeletal: Denies difficulty walking, joint pain, limited range of motion or numbness Neurologic Neurologic: Denies abnormal movements, abnormal speech, dizziness, numbness, seizure-like activity or syncope Psychiatric Psychiatric: Denies anxiety, behavioral changes, change in appetite, confusion, depression or suicidal thoughts Physical Exam Const alert, oriented x3 and no apparent distress General Appearance: cooperative and comfortable Resp normal respiratory effort Cardio regular rate GI normal to inspection, nondistended, normoactive bowel sounds GI Narrative: uterus is firm below umbilicus Palpation: soft Bimanual Exam - Adnexa, Other: Negative for cul-de-sac fullness Back/Spine no CVA tenderness and thoraco-lumbar ROM normal Extremity normal to inspection, no clubbing, cyanosis or edema, no calf tenderness and no pedal edema Psych mental status grossly normal, thought process normal, cooperative, affect normal, speech normal, activity/motor behavior normal, denies homicidal ideation and denies suicidal ideation Assessment & Plan (1) SROM (spontaneous rupture of membranes): COMMENT: admit IAL, Pit PRN, Epi PRN. monitor blood sugars q 4 hr latent q 1 hr active (2) Group beta Strep positive: COMMENT: pcn planned (3) Gestational diabetes: QUALIFIERS: Gestational diabetes mellitus control: diet-controlled Trimester: third trimester Qualified Code(s): O24.410 - Gestational diabetes mellitus in , diet controlled COMMENT: Follows with Dr. Leiva. Diet controlled. Growths ordered at 32 and 36w. 03/26 growth/THIAGO nl plan IOL 04/18 (4) Supervision of normal : QUALIFIERS: Normal : normal first Trimester: first trimester Qualified Code(s): Z34.01 - Encounter for supervision of normal first , first trimester COMMENT: PRR RAYMOND: 04/17/21 cisco Mason Spouse: Kamran PLAN: s/p PPD # 1 1. routine post delivery care 2. breast feeding- support given 3. rh positive 4. rubella immune
[2021-04-07] MEDS: Ibuprofen 600 MG Tablet PO ×3 (10:21→23:58)
[2021-04-07] MEDS: Senna/Docusate Sodium 1 Tablet PO (10:22)
--- NOTE | 2021-04-07 12:58 | NURSING ---
This instructor reviewed the documentation completed the student nurse today, 04/07/21 and it is complete. In addition, this instructor was present for the 0900 maternal head to toe assessment and agrees with the documentation completed.
[2021-04-08] MEDS: Acetaminophen 500 MG Tablet 1000 MG PO (01:53)
[2021-04-08 02:00] VITALS: BP 130/89; PULSE 88; RESP 18; TEMP 36.2
[2021-04-08] MEDS: Ibuprofen 600 MG Tablet PO (06:25)
--- NOTE | 2021-04-08 07:20 | PCM.PN.OB ---
Subjective Subjective Patient doing well without complaints. Tolerating PO. Ambulating and voiding without difficulty. feeding well. Denies chest pain, shortness of breath, calf pain/swelling, fevers, chills, lightheadedness. Objective Data Objective Data Vital Signs: Vital Signs Temp Pulse Resp BP Pulse Ox 97.1 F L 88 18 130/89 H 99 04/08/21 02:00 04/08/21 02:00 04/08/21 02:00 04/08/21 02:00 04/07/21 20:00 Oxygen Delivery Method Room Air Weight: 223 lb Body Mass Index (BMI) 35.9 Intake & Output: Intake and Output for Last 24 Hours 04/06/21 04/07/21 04/08/21 23:59 23:59 23:59 Intake Total 3840.16 / 3840.16 333 / 333 Output Total 875 / 875 300 / 300 Balance 2965.16 / 2965.16 33 / 33 Lab / Micro Data Result Diagrams: 04/06/21 03:25 Micro: Microbiology 04/06/21 05:30 Nasal Secretion SARS-CoV-2 Antigen (Rapid) - Final ROS Constitutional Constitutional: Reports systems reviewed and no addt'l complaints, except as documented Cardiovascular Cardiovascular: Reports systems reviewed and no addt'l complaints, except as documented Respiratory/Chest Respiratory/Chest: Reports systems reviewed and no addt'l complaints, except as documented Gastrointestinal Gastrointestinal: Reports systems reviewed and no addt'l complaints, except as documented Physical Exam Const alert, oriented x3 and no apparent distress HEENT Head and Scalp: atraumatic Resp normal respiratory effort GI soft to palpation and non-tender Bimanual Exam - Vag & Uterus: uterus non-tender Uterus Palpation: uterus fundus firm (below Umbilicus) Assessment & Plan (1) (spontaneous vaginal delivery): COMMENT: 38 IAL JV [id number] boy Marlon (2) Gestational diabetes: QUALIFIERS: Gestational diabetes mellitus control: diet-controlled Trimester: third trimester Qualified Code(s): O24.410 - Gestational diabetes mellitus in , diet controlled COMMENT: plan 2 hr gtt PP PLAN: s/p PPD # 2 1. routine post delivery care 2. breast feeding- support given 3. rh positive 4. rubella immune
--- NOTE | 2021-04-08 07:21 | PCM.DC ---
Discharge Instructions Diet Discharge Diet: No restrictions Activity Discharge Activity: Return to Normal Activity, May Not Drive (while taking narcotic pain medications.) and May Shower May resume sexual activity in: 4-6 weeks Dressing / Incision Call your doctor if your incision/area has: Continuous Slow Oozing, Sudden Increased Bleeding, Increased Pain/ Swelling, Increased Redness and Foul Smelling Discharge Follow Up Care Please Follow Up With: Meagan Christian MD When: Call [phone] to make an appointment with your doctor in 6 weeks. If you had elevated blood pressure or 4th degree laceration, you will need to be seen in 2 weeks. Test Results: Test results from this visit will be discussed in further detail at your follow-up appointment, if applicable. Discharge Plan Admission Admit Date/Time: 04/06/21 03:00 Primary Reason for Your Visit: vaginal delivery Attending Provider: Elizabeth Srinivasan Primary Care Provider: Aide Cesar Discharge Orders/Prescriptions Prescriptions: No Action PNV-DHA 27 mg iron-1 mg -300 mg capsule 1 cap PO DAILY RF: 0 (DME) FreeStyle Adeel 2 Sensor Kit See Rx Instructions .ROUTE .MEDSUPPLY RF: 0 Referrals / Follow Up: Aide Cesar MD [Primary Care Provider] - Disposition Disposition (needs filled in before D/C Order can be placed): Home, Self Care
[2021-04-08 09:58] VITALS: BP 133/91; PULSE 87; RESP 18; TEMP 36.3; O2SAT 97
[2021-04-08 09:59] VITALS: O2SAT 97
--- NOTE | 2021-04-08 12:13 | NURSING ---
student charting reviewed and appropriate. 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
[2021-04-08 12:30] VITALS: BP 149/97; BP 150/95; PULSE 100; RESP 18; TEMP 36.3
== END 2021-04-08 13:15 | disposition home or self-care (01) | DRG 807 ==
LOC: WPOUT 03:02 → WP 03:02
PROVIDERS: Obstetrics & Gynecology; Admitting Provider Obstetrics & Gynecology; PCP Family Medicine; Visit Provider Obstetrics & Gynecology
DX: O42.92 Full-term premature rupture of membranes, unspecified as to length of time between rupture and onset of labor (principal); Z37.0 Single live birth; O70.0 First degree perineal laceration during delivery; O24.429 Gestational diabetes mellitus in childbirth, unspecified control; O99.824 Streptococcus B carrier state complicating childbirth; B95.1 Streptococcus, group B, as the cause of diseases classified elsewhere; Z3A.38 38 weeks gestation of pregnancy
CPT/HCPCS: 59025; 59050; 82962; 85025; 86850; 86900; 86901; 87426; 99218; J7120; A4216; G0378

== ENCOUNTER 2021-05-24 17:19 | Outpatient (CLI) | payer OTHER, SELFPAY ==
[2021-05-28 11:07] LABS: HPV Reflexed? NOT INDICATED
== END 2021-05-24 23:59 | disposition short-term general hospital (02) ==
LOC: LABSPEC 17:21
PROVIDERS: PCP Family Medicine; Visit Provider Obstetrics & Gynecology
DX: Z12.4 Encounter for screening for malignant neoplasm of cervix (principal)
CPT/HCPCS: 88175; G0145

== ENCOUNTER → 2021-10-24 | Outpatient (CLI) | payer OTHER, SELFPAY | END | disposition home or self-care (01) | PROVIDERS: PCP Family Medicine; Visit Provider Family Medicine | DX: U07.1 COVID-19 (principal) | CPT/HCPCS: 87635; U0003; U0005 ==

== ENCOUNTER → 2022-02-14 | Outpatient (CLI) | payer OTHER, SELFPAY ==
[2022-02-14 12:24] LABS: Anion Gap 8 (5-15); BUN 13 mg/dL (7-18); BUN/Creat Ratio 19.9 RATIO (10-20); Calcium,Total 9.4 mg/dL (8.5-10.1); Chloride 107 mmol/L (98-107); Cholesterol 153 mg/dL (200); Creatinine, Serum 0.65 mg/dL (0.55-1.02); EST Glomerular Filtration Rate 114 mL/min (>60); Est Glom Filt Rate - Afr Amer 138 mL/min (>60); Glucose 94 mg/dL (74-106); High Density Lipoprotein 62 mg/dL; Potassium 3.8 mmol/L (3.5-5.1); Sodium Level 139 mmol/L (136-145); Triglycerides 88 mg/dL; Very Low Density Lipoprotein 18 mg/dL (5-40)
[2022-02-14 12:32] LABS: Hemoglobin A1c 5.3 % (3.8-5.6)
== END | disposition home or self-care (01) ==
LOC: MFPLAB 09:53
PROVIDERS: PCP Family Medicine; Referring Provider Family Medicine; Visit Provider Family Medicine
DX: Z00.00 Encounter for general adult medical examination without abnormal findings (principal)
CPT/HCPCS: 36415; 80048; 80061; 83036

== ENCOUNTER → 2023-09-20 | Outpatient (CLI) | payer OTHER, SELFPAY ==
[2023-09-20 15:05] LABS: Hemoglobin A1c 4.9 % (3.8-5.6)
[2023-09-20 15:08] LABS: Thyroid Stim Hormone (TSH) 1.32 uIU/mL (0.358-3.74)
== END | disposition home or self-care (01) ==
PROVIDERS: PCP Family Medicine; Referring Provider Advanced Practice Midwife; Visit Provider Advanced Practice Midwife
DX: E66.9 Obesity, unspecified (principal)
CPT/HCPCS: 36415; 83036; 84443

== ENCOUNTER → 2024-06-11 | Outpatient (CLI) | payer OTHER, SELFPAY ==
[2024-06-12 08:09] LABS: PROGESTERONE 13.8 ng/mL (.)
== END | disposition home or self-care (01) ==
LOC: BWCLAB 12:09
PROVIDERS: PCP Family Medicine; Referring Provider Advanced Practice Midwife; Visit Provider Advanced Practice Midwife
DX: Z31.9 Encounter for procreative management, unspecified (principal)
CPT/HCPCS: 36415; 84144

== ENCOUNTER → 2024-06-20 | Outpatient (CLI) | payer OTHER, SELFPAY | END | disposition home or self-care (01) | LOC: BWCLAB 11:46 | PROVIDERS: PCP Family Medicine; Referring Provider Advanced Practice Midwife; Visit Provider Advanced Practice Midwife | DX: N91.2 Amenorrhea, unspecified (principal) | CPT/HCPCS: 36415 ==

== ENCOUNTER → 2024-07-03 | Outpatient (CLI) | payer OTHER, SELFPAY ==
--- NOTE | 2024-07-03 11:06 | US_ITS ---
PROCEDURE: TRANSVAGINAL NON- REASON FOR EXAM: Infertility management. COMPARISON: None. TECHNIQUE: Transvaginal pelvic ultrasound. Color and spectral doppler analysis of the ovaries. FINDINGS: Measurements: Uterus: 8.2 x 4.9 x 3.9 cm. Endometrial Thickness: 6.2 mm. Right Ovary: 3.2 x 2.1 x 1.8 cm Left Ovary: 3.3 x 2.5 x 1.9 cm. Uterus: Anteverted. Normal contour and myometrial echotexture. Endometrium: Normal echotexture. Right ovary: Normal size and echotexture. Left ovary: Normal size and echotexture. Other adnexal findings: None. Cul-de-sac: No free intraperitoneal fluid identified. No tenderness. DOPPLER: Color Doppler: Normal color flow doppler signal at both ovaries. Spectral Doppler: Normal arterial inflow and venous outflow signal at both ovaries. US/Transvaginal Non- IMPRESSION: NORMAL TRANSVAGINAL PELVIC ULTRASOUND WITH DOPPLER. Reading Location: [id number]
== END | disposition home or self-care (01) ==
PROVIDERS: PCP Family Medicine; Referring Provider Advanced Practice Midwife; Visit Provider Advanced Practice Midwife
DX: Z31.9 Encounter for procreative management, unspecified (principal)
CPT/HCPCS: 76830

== ENCOUNTER → 2024-07-23 | Outpatient (CLI) | payer OTHER, SELFPAY ==
[2024-07-23 18:36] LABS: hCG Titer Quant., Serum 6 mIU/mL (<9 non-preg)
== END | disposition home or self-care (01) ==
LOC: BWCLAB 15:09
PROVIDERS: PCP Family Medicine; Referring Provider Obstetrics & Gynecology; Visit Provider Obstetrics & Gynecology
DX: N91.2 Amenorrhea, unspecified (principal)
CPT/HCPCS: 36415; 84702

== ENCOUNTER → 2025-01-22 | Outpatient (CLI) | payer OTHER, SELFPAY ==
--- NOTE | 2025-01-22 11:52 | RAD_ITS ---
PROCEDURE: SALPINGOGRAM 01/22/2025 REASON FOR EXAM: HSG TECHNIQUE: Procedure Code: RADSAL Modality: DX Procedure: SALPINGOGRAM Dose report: 27 seconds of fluoroscopy. 17.05 mGy of radiation exposure. COMPARISON: None FINDINGS: Hysterosalpingogram was performed by the dietetic intern. Fluoroscopic imaging was provided. The uterus is unremarkable. Both fallopian tubes were visualized and are patent. There is free flow bilaterally. RAD/Salpingogram IMPRESSION: Normal hysterosalpingogram. Reading [id number]
--- OUTSIDE RECORDS SUMMARY | 2025-01-22 19:36 | XMS RPT_ITS | CCD ---
Author Organization [facility] CliniSywy Care Team Providers Care [employer] Wireman Name Role Phone Jeremy Duffy Unavailable Meagan Christian MD Unavailable [phone] Nyla Johnston LPN Unavailable Unavailab Dr. Aide Greenberg Primary Care Provider Dr. Aide Cesar Referring Provider CAMACHO Cutler Attending Provider Yue Cutler Attending Unavailable Tali, Aide Shonda Referring Unavailable Jolliff, Aide S Primary Care Unavailable Jolliff, Aide S Primary Care Unavailable Yue Cutler Attending Unavailable Yue Cutler Referring Unavailable Yue Cutler Referring Unavailable Yue Cutler Attending Unavailable Jolliff, Aide S Primary Care Unavailable Yue Cutler Referring Unavailable Yue Cutler Attending Unavailable Jolliff, Aide S Primary Care Unavailable Jolliff, Aide S Primary Care Unavailable Yue Cutler Referring Unavailable Yue Cutler Attending Unavailable Meagan Christian Attending Unavailable Meagan Christian Referring Unavailable Jolliff, Aide S Primary Care Unavailable Jolliff, Aide S Primary Care Unavailable Jolliff, Aide S Referring Unavailable Yue Cutler Attending Unavailable Dr. Aide Cesar MD Primary Care Provider Dr. Aide Cesar MD Referring Provider Yue Cutler CNM Attending Provider Yue Cutler CNM Referring Provider Dr. Meagan Christian MD Attending Provider Dr. Meagan Christian MD Referring Provider [phone] Allergies Allergy Classification Reported Allergen(s) Allergy Type Date of Onset Reaction(s) Facility (2 sources) SEASONAL; Translations: [SEASONAL] allergy to substance 01-05-2017 [facility] Work Phone: Medications Current Medications Medication Drug Class(es) Dates Sig (Normalized) Sig (Original) docosahexaenoic acid 200 mg oral capsule (2 sources) Start: 09-20-2023 Docosahexaenoic Acid ( Dha) 200 mg capsule Active mg PO September 20, 2023 12:00am magnesium oxide 500 mg oral tablet (2 sources) Start: 09-20-2023 take 1 tablet by mouth once daily Magnesium Oxide 500 mg magnesium tablet Active 500 mg PO DAILY September 20, 2023 12:00am Completed/Discontinued Medications Medication Drug Class(es) Dates Sig (Normalized) Sig (Original) amoxicillin 500 mg oral capsule (3 sources) Penicillin-class Antibacterial Start: 12-16-2018 End: 12-27-2018 take 1 capsule by mouth twice daily Amoxicillin 500 mg capsule Discontinued 500 mg PO TWICE A DAY 09 03December 16, 2018 12:00am December 25, 2018 12:00am December 27, 2018 12:08am DULoxetine 60 mg delayed release oral capsule (3 sources) Serotonin and Norepinephrine Reuptake Inhibitor Start: 02-26-2020 End: 09-03-2020 take 1 capsule by mouth once daily Duloxetine (Cymbalta) 60 mg capsule,delayed release(DR/EC) Discontinued 60 mg PO DAILY February 26, 2020 12:00am September 03, 2020 2:08pm L Norgest/E.Estradio l-E.Estrad (20 sources) Progestin, Estrogen, Progestin-containing Intrauterine Device Start: 04-11-2022 End: 09-20-2023 take 1 tablet by mouth once daily L Norgest/E.Estradio l-E.Estrad (Seasonique) 0.15 mg-30 mcg (84)/10 mcg (7) tablets,dose pack,3 month Discontinued 1 {tbl} PO daily April 11, 2022 11:18am September 20, 2023 1:54pm Start: 04-11-2022 End: 09-20-2023 take 1 tablet by mouth once daily L Norgest/E.Estradiol-E.Estrad (Seasoniq ue) 0.15 mg-30 mcg (84)/10 mcg (7) tablets,dose pack,3 month Discontinued 1 TABLET PO daily April 11, 2022 11:18am September 20, 2023 1:54pm Start: 04-11-2022 End: 04-11-2022 take 1 tablet by mouth once daily L Norgest/E.Estradiol-E.Estrad (Seasoniq ue) 0.15 mg-30 mcg (84)/10 mcg (7) tablets,dose pack,3 month Discontinued 1 {tbl} PO daily April 11, 2022 9:51am April 11, 2022 11:18am Start: 04-11-2022 End: 04-11-2022 take 1 tablet by mouth once daily L Norgest/E.Estradiol-E.Estrad (Seasoniq ue) 0.15 mg-30 mcg (84)/10 mcg (7) tablets,dose pack,3 month Discontinued 1 TABLET PO daily April 11, 2022 9:51am April 11, 2022 11:18am Start: 02-26-2020 End: 09-03-2020 take 1 tablet by mouth once daily L Norgest/E.Estradiol-E.Estrad (Seasoniq ue) 0.15 mg-30 mcg (84)/10 mcg (7) tablets,dose pack,3 month Discontinued 1 {tbl} PO daily February 26, 2020 3:59pm September 03, 2020 2:08pm discard placebo pills Start: 02-26-2020 End: 09-03-2020 take 1 tablet by mouth once daily L Norgest/E.Estradiol-E.Estrad (Seasoniq ue) 0.15 mg-30 mcg (84)/10 mcg (7) tablets,dose pack,3 month Discontinued 1 TABLET PO daily February 26, 2020 3:59pm September 03, 2020 2:08pm discard placebo pills Start: 09-19-2019 End: 02-26-2020 take 1 tablet by mouth once daily L Norgest/E.Estradiol-E.Estrad (Seasoniq ue) 0.15 mg-30 mcg (84)/10 mcg (7) tablets,dose pack,3 month Discontinued 1 {tbl} PO daily September 19, 2019 2:01pm February 26, 2020 3:59pm discard placebo pills Start: 09-19-2019 End: 02-26-2020 take 1 tablet by mouth once daily L Norgest/E.Estradiol-E.Estrad (Seasoniq ue) 0.15 mg-30 mcg (84)/10 mcg (7) tablets,dose pack,3 month Discontinued 1 TABLET PO daily September 19, 2019 2:01pm February 26, 2020 3:59pm discard placebo pills Start: 03-05-2019 End: 09-19-2019 take 1 tablet by mouth once daily L Norgest/E.Estradiol-E.Estrad (Seasoniq ue) 0.15 mg-30 mcg (84)/10 mcg (7) tablets,dose pack,3 month Discontinued 1 {tbl} PO daily March 05, 2019 10:12am September 19, 2019 2:03pm Start: 03-05-2019 End: 09-19-2019 take 1 tablet by mouth once daily L Norgest/E.Estradiol-E.Estrad (Seasoniq ue) 0.15 mg-30 mcg (84)/10 mcg (7) tablets,dose pack,3 month Discontinued 1 TABLET PO daily March 05, 2019 10:12am September 19, 2019 2:03pm Start: 01-10-2019 End: 03-05-2019 take 1 tablet by mouth once daily L Norgest/E.Estradiol-E.Estrad (Seasoniq ue) 0.15 mg-30 mcg (84)/10 mcg (7) tablets,dose pack,3 month Discontinued 1 {tbl} PO daily January 10, 2019 1:24pm March 05, 2019 10:12am Start: 01-10-2019 End: 03-05-2019 take 1 tablet by mouth once daily L Norgest/E.Estradiol-E.Estrad (Seasoniq ue) 0.15 mg-30 mcg (84)/10 mcg (7) tablets,dose pack,3 month Discontinued 1 TABLET PO daily January 10, 2019 1:24pm March 05, 2019 10:12am Start: 01-30-2018 End: 01-10-2019 take 1 tablet by mouth once daily L Norgest/E.Estradiol-E.Estrad (Seasoniq ue) 0.15 mg-30 mcg (84)/10 mcg (7) tablets,dose pack,3 month Discontinued 1 {tbl} PO daily January 30, 2018 11:11am January 10, 2019 1:24pm Start: 01-30-2018 End: 01-10-2019 take 1 tablet by mouth once daily L Norgest/E.Estradiol-E.Estrad (Seasoniq ue) 0.15 mg-30 mcg (84)/10 mcg (7) tablets,dose pack,3 month Discontinued 1 TABLET PO daily January 30, 2018 11:11am January 10, 2019 1:24pm Start: 11-20-2017 End: 01-30-2018 take 1 tablet by mouth once daily L Norgest/E.Estradiol-E.Estrad (Seasoniq ue) 0.15 mg-30 mcg (84)/10 mcg (7) tablets,dose pack,3 month Discontinued 1 {tbl} PO daily November 20, 2017 12:00am January 30, 2018 11:11am Start: 11-20-2017 End: 01-30-2018 take 1 tablet by mouth once daily L Norgest/E.Estradiol-E.Estrad (Seasoniq ue) 0.15 mg-30 mcg (84)/10 mcg (7) tablets,dose pack,3 month Discontinued 1 TABLET PO daily November 20, 2017 12:00am January 30, 2018 11:11am Start: 11-19-2017 End: 11-20-2017 take 1 tablet by mouth once daily Levonorgestrel-Ethinyl Estrad (Aviane) 0.1-20 mg-mcg tablet Discontinued 1 {tbl} PO .COMPLEX November 19, 2017 3:53pm November 20, 2017 7:00am 1 tab PO QD active pills only for continuous cycling Start: 11-19-2017 End: 11-20-2017 take 1 tablet by mouth once daily Levonorgestrel-Ethinyl Estrad (Aviane) 0.1-20 mg-mcg tablet Discontinued 1 TABLET PO .COMPLEX November 19, 2017 3:53pm November 20, 2017 7:00am 1 tab PO QD active pills only for continuous cycling Start: 05-24-2017 End: 11-19-2017 take 1 tablet by mouth once daily Levonorgestrel-Ethinyl Estrad (Aviane) 0.1-20 mg-mcg tablet Discontinued 1 {tbl} PO daily May 24, 2017 1:00am November 19, 2017 3:53pm Start: 05-24-2017 End: 10-16-2017 take 1 tablet by mouth once daily L Norgest/E.Estradiol-E.Estrad (Seasoniq ue) 0.15 mg-30 mcg (84)/10 mcg (7) tablets,dose pack,3 month Discontinued 1 {tbl} PO daily May 24, 2017 1:00am October 16, 2017 2:46pm Start: 05-24-2017 End: 11-19-2017 take 1 tablet by mouth once daily Levonorgestrel-Ethinyl Estrad (Aviane) 0.1-20 mg-mcg tablet Discontinued 1 TABLET PO daily May 24, 2017 1:00am November 19, 2017 3:53pm Start: 05-24-2017 End: 10-16-2017 take 1 tablet by mouth once daily L Norgest/E.Estradiol-E.Estrad (Seasoniq ue) 0.15 mg-30 mcg (84)/10 mcg (7) tablets,dose pack,3 month Discontinued 1 TABLET PO daily May 24, 2017 1:00am October 16, 2017 2:46pm Start: 12-19-2016 take 1 tablet by hermann th once daily LEVORA 0.15/30 (28) 0.15-30 MG-MCG TABS One tablet by mouth daily LEVONORGESTREL-ETHINYL ESTRAD [id number] Meagan Christian MD Start: 12-19-2016 take 1 tablet by hermann th once daily LEVORA 0.15/30 (28) 0.15-30 MG-MCG TABS One tablet by mouth daily LEVONORGESTREL-ETHINYL ESTRAD [id number] Meagan Christian MD Flash Glucose Sensor (Freest yle Adeel 2 Sensor) kit (6 sources) Start: 04-06-2021 End: 05-24-2021 Flash Glucose Sensor (Freest yle Adeel 2 Sensor) kit Discontinued 0 .ROUTE .MEDSUPPLY April 06, 2021 4:22am May 24, 2021 4:19pm As directed Start: 01-27-2021 End: 04-06-2021 Flash Glucose Sensor (Freest yle Adeel 2 Sensor) kit Discontinued 0 .ROUTE .MEDSUPPLY January 27, 2021 12:00am April 06, 2021 4:22am As directed ibuprofen 600 mg oral tablet (6 sources) Nonsteroidal Anti-inflammatory Drug Start: 04-08-2021 End: 05-24-2021 take 2 tablets by mouth every eight hours Ibuprofen 400 MG tablet Discontinued 800 mg PO Q8H April 08, 2021 1:00am May 24, 2021 4:19pm Start: 04-08-2021 End: 05-24-2021 take 1 tablet by mouth every six hours as needed for pain Ibuprofen 600 MG tablet Discontinued 600 mg PO EVERY 6 HOURS NEEDED as needed for fever or pain April 08, 2021 1:00am May 24, 2021 4:19pm Start: 04-08-2021 End: 05-24-2021 take 800 mg by mouth every eight hours Ibuprofen Discontinued 800 MG PO Q8H April 08, 2021 1:00am May 24, 2021 4:19pm Multivit 37-Yrxv-Juarck 1-Dh a (Pnv-Dha) 27 mg iron-1 mg -300 mg capsule (3 sources) Start: 09-03-2020 End: 06-14-2022 Multivit 66-Uitv-Lpxfzr 1-Dh a (Pnv-Dha) 27 mg iron-1 mg -300 mg capsule Discontinued 1 NMA PO DAILY September 03, 2020 12:00am June 14, 2022 4:30pm Start: 09-03-2020 End: 06-14-2022 take 1 capsule by mouth once daily Multivit 68-Bkhd-Kqwheu 1-Dha (Pnv-Dha) 27 mg iron-1 mg -300 mg capsule Discontinued 1 CAP PO DAILY September 03, 2020 12:00am June 14, 2022 4:30pm Start: 09-03-2020 take 1 capsule by mo [facility] once daily Multivit 04-Bqrv-Ympxqz 1-Dha (Pnv-Dha) 27 mg iron-1 mg -300 mg capsule Active 1 CAP PO DAILY September 03, 2020 12:00am norethindrone 0.35 mg oral tablet (3 sources) Start: 05-24-2021 End: 04-11-2022 take 1 tablet by mouth once daily Norethindrone (Contraceptive) 0.35 mg tablet Discontinued 0.35 mg PO DAILY May 24, 2021 1:00am April 11, 2022 9:51am valACYclovir 500 mg oral tablet (2 sources) Herpesvirus Nucleoside Analog DNA Polymerase Inhibitor, Herpes Simplex Virus Nucleoside Analog DNA Polymerase Inhibitor, Herpes Zoster Virus Nucleoside Analog DNA Polymerase Inhibitor Start: 06-28-2022 End: 09-20-2023 take 1 tablet by mouth twice daily Valacyclovir (Valtrex) 500 mg tablet Discontinued 500 mg PO TWICE A DAY June 28, 2022 1:00am September 20, 2023 1:54pm Problems Active Problems Problem Classification Problem Date Documented Date Episodic/Chronic Anxiety disorders (3 sources) Anxiety; Translations: [Anxiety disorder, unspecified] 04-08-2021 Chronic Comment on above: currently not on med ication Bacterial infection; unspecified site (3 sources) Bacteria present; Translations: [Streptococcus, group B, as the cause of diseases classified elsewhere] 04-08-2021 Episodic Comment on above: pcn planned Cardiac dysrhythmias (3 sources) Multiple premature ventricular complexes; Translations: [Ventricular premature depolarization] 03-10-2021 Chronic Comment on above: age 5 Contraceptive and procreative management (2 sources) Encounter for procreative management, unspecified; Translations: [Patient encounter status] Onset: 07-17-2024 05-30-2024 Episodic Diabetes or abnormal glucose tolerance complicating ; childbirth; or the puerperium (6 sources) Abnormal glucose level; Translations: [Abnormal glucose complicating ] 03-10-2021 Episodic Comment on above: Early 3h GCT nl. Rep eat 3h GCT 3rd trimester. plan 2 hr gtt PP Menstrual disorders (2 sources) Amenorrhea, unspecified; Translations: [Amenorrhea] Onset: 08-06-2024 07-23-2024 Chronic Comment on above: HCGx2 Other complications of (3 sources) Vaginal discharge; Translations: [Other specified related conditions, unspecified trimester] 03-21-2021 Episodic Comment on above: likely physiologic. wetprep sent Other nutritional; endocrine; and metabolic disorders (1 source) Obesity, unspecified; Translations: [Obesity, unspecified] Onset: 09-26-2023 Chronic Other and delivery including normal (9 sources) Normal ; Translations: [Encounter for supervision of normal , unspecified, unspecified trimester] 04-08-2021 Episodic Comment on above: PRR RAYMOND: boy Marlon Spouse: Lubalaji 38 IAL JV GDMA1 boy Marlon nl genetics (male) , declines carrier and afp; NL anatomy Other upper respiratory infections (3 sources) Acute pharyngitis; Translations: [Acute pharyngitis, unspecified] 02-26-2020 Episodic Polyhydramnios and other problems of amniotic cavity (1 source) Spontaneous rupture of membranes 04-08-2021 Episodic Comment on above: admit IAL, Pit PRN, Epi PRN. monitor blood sugars q 4 hr latent q 1 hr active Residual codes; unclassified (2 sources) Infertile 06-26-2024 Episodic Comment on above: Day 08/08 labs -jaja l Sprains and strains (3 sources) Injury of wrist; Translations: [Strain of unspecified muscle, fascia and tendon at wrist and hand level, right hand, initial encounter] 02-26-2020 Episodic Superficial injury; contusion (3 sources) Contusion of upper arm; Translations: [Contusion of right upper arm, initial encounter] 02-26-2020 Episodic Unclassified (2 sources) Gynecologic examination ; Translations: [Encounter for gynecological examination (general) (routine) without abnormal findings] Onset: 12-19-2016 12-19-2016 Past or Other Problems Problem Classification Problem Date Documented Da te Episodic/Chronic Diseases of mouth; excluding dental (2 sources) Sialolithiasis; Translations: [Sialolithiasis] Onset: 01-05-2017 01-05-2017 Episodic Residual codes; unclassified (2 sources) Pain; Translations: [Pain, unspecified] Onset: 01-05-2017 01-05-2017 Episodic Unclassified (2 sources) Spontaneous rupture of membranes; Translations: [Spontaneous rupture of amniotic membranes] 04-08-2021 Results Test Name Value Interpretation Reference Range Facility HCG ( test) QlOrder ed By: Meagan Christian on 07-23-2024 Human Chorionic Gonadotropin, Quant 6 mIU/mL <9 [facility] Comment on above: Gestational Age0.2-1 Week: 5-50 mIU/mL1-2 Weeks: 50-500 mIU/mL2-3 Weeks: 100-5000 mIU/mL3-4 Weeks: 500-10,000 mIU/mL4-5 Weeks:1000-50,000 mIU/mL5-6 Weeks: 10,000-100,000 mIU/mL6-8 Weeks: 15,000-200,000 mIU/mL2-3 Months:10,000-100,000 mIU/mL hCG Titer Quant., Serumon HCG QUANT. 6 mIU/mL Normal <9 non-preg [facility] Comment on above: Result Comment: Gest ational Age 0.2-1 Week: 5-50 mIU/mL 1-2 Weeks: 50-500 mIU/mL 2-3 Weeks: 100-5000 mIU/mL 3-4 Weeks: 500-10,000 mIU/mL 4-5 Weeks:1000-50,000 mIU/mL 5-6 Weeks: 10,000-100,000 mIU/mL 6-8 Weeks: 15,000-200,000 mIU/mL 2-3 Months:10,000-100,000 mIU/mL Performed By: #### L 700.8000 #### [facility] [address] [place], [address] Transvaginal Non-on 07-03-2024 Transvaginal Non- [facility] Imaging Services [address] [place] [address] Transvaginal Non- MR#: [id number] Acct: [id number] Name: HENRRY ESCAMILLA Rep #: [id number] : 1995 F 29 From: Juan Diego López PCP: Dr. Aide Cesar MD Status: REG CLI Study: Transvaginal Non- Date of Exam: Exam# [id number] Ordering Dr: Yue Cutler CNM PROCEDURE: TRANSVAGINAL NON- REASON FOR EXAM: Infertility management. COMPARISON: None. TECHNIQUE: Transvaginal pelvic ultrasound. Color and spectral doppler analysis of the ovaries. FINDINGS: Measurements: Uterus: 8.2 x 4.9 x 3.9 cm. Endometrial Thickness: 6.2 mm. Right Ovary: 3.2 x 2.1 x 1.8 cm Left Ovary: 3.3 x 2.5 x 1.9 cm. Uterus: Anteverted. Normal contour and myometrial echotexture. Endometrium: Normal echotexture. Right ovary: Normal size and echotexture. Left ovary: Normal size and echotexture. Other adnexal findings: None. Cul-de-sac: No free intraperitoneal fluid identified. No tenderness. DOPPLER: Color Doppler: Normal color flow doppler signal at both ovaries. Spectral Doppler: Normal arterial inflow and venous outflow signal at both ovaries. US/Transvaginal Non- IMPRESSION: NORMAL TRANSVAGINAL PELVIC ULTRASOUND WITH DOPPLER. Reading Location: [address] CC: CAMACHO Cutler; Dr. Aide Cesar MD Dialysis Equipment Technician: Signed Normal [facility] L900.0111on 06-20-2024 REPROSOURCE SEE SCANNED REPORT Normal [facility] Comment on above: Performed By: #### L 900.0111 #### [facility] [address] [place], [address] No Panel InformationOrdered By: Yue Cutler on 06-20-2024 Miscellaneous Test Comment SEE SCANNED REPORT [facility] PROGESTERONE 4317on 06-12-19 25 PROGESTERONE 13.8 ng/mL Normal . [facility] Comment on above: Order Comment: N Day 21 of cycle Result Comment: Foll icular phase 0.1 - 0.9 Luteal phase 1.8 - 23.9 Ovulation phase 0.1 - 12.0 First trimester 11.0 - 44.3 Second trimester 25.4 - 83.3 Third trimester 58.7 - 214.0 Postmenopausal 0.0 - 0.1 Performed at: [facility] [id number] Straight Tooth Gear Generator Operator: Steve Royal PhD, Phone: [phone] Performed By: #### L 801.2600 #### [facility] [address] [place], [address] Quantitative serum progester one measurement by electrochemiluminescence immunoassay (Ordered By: Yue Cutler on 06-11-2024 Progesterone Level 13.8 ng/mL . [facility] Comment on above: Follicular phase 0.1 - 0.9 Luteal phase 1.8 - 23.9 Ovulation phase 0.1 - 12.0 First trimester 11.0 - 44.3 Second trimester 25.4 - 83.3 Third trimester 58.7 - 214.0 Postmenopausal 0.0 - 0.1Performed at: CB - [facility] [place], [place] [id number] Director: Steve Royal PhD, Phone: [phone] Sample [facility] Office Visit Reporton 05-30-2024 Sample [facility] Office Visit Report [facility] [address], [address] [place] [address] OFFICE VISIT Date of Service: 05/30/24 MR#: [id number] Acct: [id number] Name: HENRRY ESCAMILLA Rep #: [id number] : 1995 Provider: CAMACHO Wheat ams Age/Sex: 29/F Location: [facility] Status: Signed Intake Vital Signs 09/20/23 13:49 05/30/24 10:52 Height 5 ft 6 in 5 ft 6 in Weight: 203 lb BMI 32.8 BP 130/89 H Intake Visit Reasons: TTC > 15 months Content Curator Required: No Is patient in pain?: No Allergies No Known Allergies Allergy (Verified 05/30/24 10:51) Medications ???Medication ???Instructions ???Recorded ???Confirmed ???Type docosahexaenoic acid 200 mg mg PO 09/20/23 05/30/24 History capsule ( DHA) magnesium oxide 500 mg PO DAILY 09/20/23 05/30/24 History Is last menstrual period known: Yes Last Menstrual Period: 05/22/24 Post menopausal: No Patient : No Control Method: none PFSH Medical History Positive GBS test Gestational diabetes Anxiety PVC (premature ventricular contraction) Surgical History H/O lymph node biopsy Family History Sister Cancer Thyroid Other A-fib Diabetes Multiple sclerosis Social History household members: spouse housing: house current occupational status: employed current occupation: [employer] in [place] Smoking Status: Never smoker second hand exposure: No alcohol intake: current alcohol intake frequency: a few times a month details: social substance use type: does not use caffeine: Yes what type of physical activity do you participate in: none seatbelt use: always do you feel safe at home: Yes additional social history: [employer] Ambrocio Patient is an RN for [employer] HPI TTC > 15 months Details: HENRRY ESCAMILLA is a 29 year old who presents for infertility work up. TTC x 1 year. having ovulatory sx and timed intercourse. 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 Date Name GA/Weeks Outcome Route Bth Weight Gen Labor Lgth Anesthesia Del Locatn Provider FOB 04/06/21 Marlon 38 live - full term 7lbs 4oz Male epidural [facility] V Delivery Date: 04/06/21 Last Updated by: Liana Booth prom; gdm; midline and 1st degree laceration ROS Const Constitutional: Reports system reviewed and no additional complaints, except as documented Cardio Card: Reports system reviewed and no additional complaints, except as documented Resp Resp: Reports system reviewed and no additional complaints, except as documented GI GI: Reports system reviewed and no additional complaints, except as documented : Reports system reviewed and no additional complaints, except as documented; Denies difficulty voiding, dysuria or urinary frequency Skin Skin/Breast: Reports system reviewed and no additional complaints, except as documented Neuro Neuro: Reports system reviewed and no additional complaints, except as documented Psych Psych: Reports system reviewed and no additional complaints, except as documented; Denies anhedonia, anxiety or depression Exam Const General: cooperative, healthy appearing, comfortable and no acute distress Orientation: alert, awake and oriented x3 Resp Effort Inspection: normal respiratory effort, able to speak in complete sentences and symmetric chest movement GI Inspection: normal to inspection Palpation: soft Rectal Exam: visual inspection normal External Female Exam: normal external appearance and normal appearance of the urethra Urethra: normal appearance of the urethra Speculum Exam - Vagin (more content not included)... Normal [facility] Hemoglobin A1con 09-20-2023 HbA1c (Bld) [Mass fraction] 4.9 % Normal 3.8-5.6 [facility] Comment on above: Result Comment: Norm al < 5.7 % Prediabetic 5.7 - 6.4 % Diabetic >or= 6.5 % Please note range changes. Performed By: #### L 501.9985, L501.9520 #### [facility] [address] [place], [address] Sample Weaver Office Visit Reporton 09-20-2023 Sample Weaver Office Visit Report [facility] [place] [address] [place] [address] OFFICE VISIT Date of Service: 09/20/23 MR#: [id number] Acct: [id number] Name: HENRRY ESCAMILLA Rep #: [id number] : 1995 Provider: CAMACHO Wheat [facility] Age/Sex: 28/F Location: [facility] Status: Signed with Addenda ADDENDUM by CAMACHO Cutler on 09/26/23 at 0833 Assessment and Plan Assessment and Plan (1) Encounter for well woman exam with routine gynecological exam: Status: Acute Plan: Cervical cancer screening: up to date Breast cancer screening: age 38 STD prevention and contraceptive options including their risks, benefits, and alternatives were reviewed with the patient and she chooses: TTC Encouraged maintenance of a healthy weight and active lifestyle and handout given. Calcium/vitamin D recommendations provided. Annual exam handout including recommendations for good health guidelines and basic screening information given. Problem list up to date, see problem list details for any additional plan information. follow up in one year for annual health maintenance exam or sooner if needed. TSH and A1C for concerns of weight gain. Orders: Orders Thyroid Stim Hormone (TSH) 09/20/23 E66.9 - Obesity, unspecified Hemoglobin A1c 09/20/23 E66.9 - Obesity, unspecified 09/26/23 0833 Date Yue Cutler CNM cc: * Signed Intake Vital Signs 06/14/22 15:24 09/20/23 13:49 09/20/23 13:49 Height 5 ft 6 in 5 ft 6 in 5 ft 6 in Weight: 208 lb BMI 33.5 BP 138/93 H Intake Visit Reasons: Annual (ONLINE TUTOR)(DISCUS INFERTILITY) Content Curator Required: No Is patient in pain?: No Allergies No Known Allergies Allergy (Verified 09/20/23 13:48) Medications docosahexaenoic acid 200 mg capsule ( DHA) mg PO 09/20/23 [History Confirmed 09/20/23] magnesium oxide 500 mg PO DAILY 09/20/23 [History Confirmed 09/20/23] Post menopausal: No Patient : No : No PFSH Medical History Anxiety Gestational diabetes Positive GBS test PVC (premature ventricular contraction) Surgical History H/O lymph node biopsy Family History Sister Cancer Thyroid Other A-fib Diabetes Multiple sclerosis Social History household members: spouse housing: house current occupational status: employed current occupation: [employer] in [place] Smoking Status: Never smoker second hand exposure: No alcohol intake: current alcohol intake frequency: a few times a month details: social substance use type: does not use caffeine: Yes what type of physical activity do you participate in: none seatbelt use: always do you feel safe at home: Yes additional social history: Guadalupe Ambrocio Patient is an RN for [employer] History 1 Elective abortions Hx Para 1 Spontaneous abortions Hx # Term Pregnancies Ectopic pregnancies Hx # Pregnancies Multiple births # of living children 1 Past Pregnancies Del. Date Name GA/Weeks Outcome Route Bth Weight Infant Gen Labor Lgth Anesthesia Del Locatn Provider FOB 04/06/21 Marlon 38 live - full term 7lbs 4oz Male epidural [facility] Delivery Date: 04/06/21 Last Updated by: Liana Booth prom; gdm; midline and 1st degree laceration HPI Annual (ONLINE TUTOR)(DISCUS INFERTILITY) Details: HENRRY ESCAMILLA is a 28 year old who presents for annual exam. Last PAP: 2021 History of abnormal PAP: no Last mammogram: Age 38 History of abnormal mammogram: no Colon cancer screening: age 43 Other preventative health care screenings: PCP Female Reproductive History Last Menstrual Period: 08/30/23 Cycle Length: 21-35 Bleeding Duration: 4 Control Method: TTC Questions: metorrhagia: No, sexually active: Yes, dyspareunia: No and PCB: No Menopausal Symptoms: No hot flashes, No night sweats, No weight change, No mood changes, No difficulty concentrating, No sleep problems and No change in libido ROS Const Constitutional: Reports system reviewed and no additional complaints, except as documented; Denies night sweats Cardio Card: Reports system reviewed and no additional complaints, except as documented Resp Resp: Reports system reviewed and no additional complaints, except as documented GI GI: Reports system reviewed and no additional complaints, except as documented : Reports system reviewed and no additional complaints, except as documented; Denies difficulty voiding, dysuria, hot flashes or urinary frequency Skin Skin/Breast: Reports (more content not included)... Normal [facility] Serum or plasma thyroid stim ulating hormone (TSH) measurement (units/volume)Ordered By: Yue Cutler on 09-20-2023 TSH Qn 1.32 uIU/mL 0.358-3.74 [facility] Thyroid Stim Hormone (TSH)on 09-20-2023 TSH 1.32 uIU/mL Normal 0.358-3.74 [facility] Comment on above: Performed By: #### [id number], [id number] #### [facility] Laboratory [address] [place], [address] Whole blood hemoglobin A1c/t otal hemoglobin ratio (mass fraction)Ordered By: Yue Cutler on 09-20-2023 HbA1c (Bld) [Mass fraction] 4.9 % 3.8-5.6 [facility] Comment on above: Normal < 5.7 % Predi abetic 5.7 - 6.4 % Diabetic >or= 6.5 % Please note range changes. Basophil percentageon 2021 Chloride [Moles/Vol] 107 mmol/L 98-107 [facility] Work Phone: Cholesterol [Mass/Vol] 153 mg/dL <200 Wo yousuf [facility] Work Phone: Comment on above: <200 mg/dL Desirable 200-240 mg/dL Borderline >240 mg/dL High Risk Glucose [Mass/Vol] 94 mg/dL 74-106 [facility] Work Phone: Potassium [Moles/Vol] 3.8 mmol/L 3.5-5.1 [facility] Work Phone: Sodium [Moles/Vol] 139 mmol/L 136-145 [facility] Work Phone: Triglyceride [Mass/Vol] 88 mg/dL <199 [facility] Work Phone: Comment on above: The drugs N-Acetylcy steine and Metamizole may falsely depress this assay.Serum Triglycerides Reference Interval Normal <150 mg/dL Borderline high 150 - 199 mg/dL High 200 - 499 mg/dL Very High > or = 500 mg/dL Laboratory - Chemistry and C hemistry - challengeon 02-14-2022 CO2 [Moles/Vol] 24.0 mmol/L 21.0-32.0 [facility] Work Phone: Urea nitrogen/Creatinine [Mass ratio] 19.9 mg/mg 10-20 [facility] Work Phone: No Panel Informationon 02-14 Estimated GFR (MDRD) Amer 138 mL/min >60 [facility] Work Phone: Comment on above: GFR Calc Estimated GFR (MDRD) Non-Af Amer 114 mL/min >60 [facility] Work Phone: Comment on above: Non- GFR Calc Serum or plasma calcium janeen urement (mass/volume)on 02-14-2022 Calcium [Mass/Vol] 9.4 mg/dL 8.5-10.1 [facility] Work Phone: Serum or plasma cholesterol in HDL measurement (mass/volume)on 02-14-2022 Cholesterol in HDL [Mass/Vol] 62 mg/dL >40 [facility] Work Phone: Comment on above: The drugs N-Acetylcy steine and Metamizole may falsely depress this assay. Reference Range HDL <40 mg/dL Low HDL Cholesterol HDL >or= 60 mg/dL High HDL Cholesterol Serum or plasma cholesterol in VLDL measurement (mass/volume)on 02-14-2022 Cholesterol in VLDL [Mass/Vol] 18 mg/dL 5-40 [facility] Work Phone: Serum or plasma creatinine m easurement (mass/volume)on 02-14-2022 Creatinine [Mass/Vol] 0.65 mg/dL 0.55-1.02 [facility] Work Phone: Comment on above: The validity of the calculated GFR & GFRAA in patients over 70 years has not been determined. Clinical correlation is essential. Serum or plasma low density lipoprotein (LDL) cholesterol measurement (mass/volume)on 02-14-2022 Cholesterol in LDL [Mass/Vol] 73 mg/dL 0-130 [facility] Work Phone: Serum or plasma urea nitroge n measurement (mass/volume)on 02-14-2022 Urea nitrogen [Mass/Vol] 13 mg/dL 7-18 [facility] Work Phone: Thin prep Papanicolaou smear with manual screeningon 02-14-2022 Thin prep Papanicolaou smear with manual screening 8 5-15 [facility] Work Phone: Whole blood hemoglobin A1c/t otal hemoglobin ratio (mass fraction)on 02-14-2022 HbA1c (Bld) [Mass fraction] 5.3 % 3.8-5.6 [facility] Work Phone: Comment on above: Normal < 5.7 % Predi abetic 5.7 - 6.4 % Diabetic >or= 6.5 % Please note range changes. Laboratory - Microbiology an d Antimicrobial susceptibilityon 10-24-2021 SARS-CoV-2 (COVID-19) RNA SANDRA+probe Ql (Unsp spec) Detected Not Detect [facility] Work Phone: Comment on above: Normal Reference Ran ge: Not DetectedMethod:(RT-PCR) real-time reverse transcriptase PCRLuminex Joss Technology Instrument*The Food and Drug Administration (FDA) has issued an Emergency Use Authorization (EAU) for the [employer] SARS-CoV-2 Assay for the rapid detection of the virus that causes COVID-19. This test has been validated, but the FDAs independent review of this validation is pending.*Negative results do not preclude infection and should not be used as the sole basis for treatment or patient management. Optimum specimen types and timing for peak viral levels during infections caused by SARS-CoV-2 have not been determined. Collection of multiple specimens from the same patient may be necessary to detect the virus. The possibility of a false negative result should be considered if the patient has clinical presentation or has had recent exposure. NOVEL CORONAVIRUS NASOPHARYN GEAL - [facility] SPECIMEN ONLYon 03-15-2020 SARS-COV-2 NOT DETECTED Normal NOT DETECTED [facility] Comment on above: Order Comment: Viral transport media - Collection must be done while wearing N-95 mask, eye protection, gown and gloves. Please label ALL specimens as 2019-nCoV rule out and deliver by hand. This test was performed using real time PCR and has been approved for the qualitative detection of SARS-CoV-2 nucleic acid. The test has been authorized by the FDA under an emergency use authorization for use by authorized laboratories. Result Comment: Nega tive results do not preclude SARS-CoV-2 infection and should not be used as the sole basis for treatment or other patient management decisions. Optimum specimen types and timing for peak viral levels during infections caused by SARS-CoV-2 has not been determined. The possibility of a false negative result should especially be considered if the patient's recent exposures or clinical presentation suggest that SARS-CoV-2 infection is probable, and diagnostic tests for other causes of illness (e.g., other respiratory illness) are negative. Collection of a new specimen and re-testing may be necessary if the patient is critically ill or clinically deteriorating. Performed By: #### L [id number] #### [facility] ([facility]) [address] [place] [address] 08-15-2019 CNPN Telephone (INTMWS) -------- HENRRY LOYD ([id number]) 1995 F Date Time Provider Department 08/15/19 NO PCP INTMWS During your visit today, we recorded the following information about you: Jase Holguin RN 08/15/2019 8:50 AM Signed Pt called, verified by name and birthdate. Pt had a question for Dr. Grier. Explained to pt she has not seen him in over 5 years and he can't answer a question if she is not a current patient. Pt verbalized understanding. Offered pt [facility] online services Jase Holguin RN Allergies As of Date: 08/15/2019 Noted Allergy Reaction SEASONAL ALLERGIES 08/24/2014 14 - Other: See Comments Comments: Seasonal Allergies Date Reviewed: 09/14/2015 Reviewed by: Mary Kay Gold Ma - Fully Assessed Reason for Visit: Patient Question [0142] Prescriptions as of 08/15/2019 Sig: LEVONORGESTREL 0.15 MG-ETHINY* Take 1 tablet by mouth once d* Problem List As Of Date 08/15/2019 Noted Resolved PREMATURE BEATS NEC [I49.49] More... CARDIAC DYSRHYTHMIAS NEC [I49.8] Routine infant or child health check [Z00.129] 12/17/2006 08/19/2012 Well adolescent visit [Z00.129] 11/25/2009 08/19/2012 Encounter Status:Closed by JASE HOLGUIN RN on 08/15/19 [facility] Office Visit: UC: swollen no de under tongueon 01-05-2017 Documentation of current medications (procedure) Done Invalid Interpretation Code [facility] Work Phone: Fall risk assessment No Invalid Interpretation Code [facility] Work Phone: Protein mass conc Done [facility] Work Phone: Tobacco smoking status NHIS Never Inva lid Interpretation Code [facility] Work Phone: Tobacco smoking status NHIS Never smoker [facility] Work Phone: Tobacco use HS Never smoker Invalid Interpretation Code [facility] Work Phone: Office Visit: est annualon 0 12-19-2016 Documentation of current medications (procedure) Done Invalid Interpretation Code [facility] Fall risk assessment No Invalid Interpretation Code [facility] Hemoglobin presence in stool not done Invalid Interpretation Code [facility] Tobacco smoking status NHIS Never Inva lid Interpretation Code [facility] Tobacco use [facility] Never smoker Invalid Interpretation Code [facility] Vital Signs Date Time Vital Sign Value Performing Clinician Faci zaida 05-30-2024 10:52-0500 Body height 167.[address] Aide Cesar MD Work Phone: [facility] 05-30-2024 10:52-0500 Body mass index (BMI) [Ratio] 32.8 kg/m2 Dr. Aide Cesar MD Work Phone: [facility] 05-30-2024 10:52-0500 Body weight 92.[address] Aide Cesar MD Work Phone: [facility] 05-30-2024 10:52-0500 Diastolic blood pressure 89 mm[Hg] Dr. Aide Cesar MD Work Phone: [facility] 05-30-2024 10:52-0500 Systolic blood pressure 130 mm[Hg] Dr. Aide Cesar MD Work Phone: [facility] 09-20-2023 13:49-0400 Body height 167.[address] Aide Cesar Work Phone: [facility] 09-20-2023 13:49-0400 Body mass index (BMI) [Ratio] 33.5 kg/m2 Dr. Aide Cesar Work Phone: [facility] 09-20-2023 13:49-0400 Body weight 94.[address] Aide Cesar Work Phone: [facility] 09-20-2023 13:49-0400 Diastolic blood pressure 93 mm[Hg] Dr. Aide Cesar Work Phone: [facility] 09-20-2023 13:49-0400 Systolic blood pressure 138 mm[Hg] Dr. Aide Cesar Work Phone: [facility] 01-05-2017 17:22-0400 BMI (Body Mass Index) 29.18 kg/m2 Nyla Johnston LPN [facility] Work Phone: 01-05-2017 17:22-0400 Body Temperature 98.6 [degF] Nyla Johnston LPN [facility] Work Phone: 01-05-2017 17:22-0400 BP Diastolic 72 mm[Hg] Nyla Johnston LPN [facility] Work Phone: 01-05-2017 17:22-0400 BP Systolic 108 mm[Hg] Nyla Johnston LPN [facility] Work Phone: 01-05-2017 17:22-0400 Height 167.64 cm Nyla Johnston LPN [facility] Work Phone: 01-05-2017 17:22-0400 Pulse (Heart Rate) 86 /min Nyla Johnston LPN [facility] Work Phone: 01-05-2017 17:22-0400 Respiratory Rate 12 /min Nyla Johnston LPN [facility] Work Phone: 01-05-2017 17:22-0400 Weight 82.01 kg Nyla Preston RICHARDSON [facility] Work Phone: 12-19-2016 13:35-0400 BMI (Body Mass Index) 30.55 kg/m2 Meagan Christian MD [facility] 12-19-2016 13:35-0400 Body Temperature 99.1 [degF] Meagan Christian MD [facility] 12-19-2016 13:35-0400 BP Diastolic 85 mm[Hg] Meagan Christian MD [facility] 12-19-2016 13:35-0400 BP Systolic 133 mm[Hg] Meagan Christian MD [facility] 12-19-2016 13:35-0400 Height 165.1 cm Meagan Christian MD [facility] 12-19-2016 13:35-0400 Pulse (Heart Rate) 74 /min Meagan Christian MD [facility] 12-19-2016 13:35-0400 Respiratory Rate 16 /min Meagan Christian MD [facility] 12-19-2016 13:35-0400 Weight 83.28 kg Meagan Christian MD [facility] Encounters Encounter Date Encounter Type Care Provider Facility Start: 07-23-2024 End: 07-23-[address] Aide Cesar MD Work Phone: [facility] Work Phone: Start: 07-23-2024 End: 07-23-[address] Meagan Christian MD -Lab, [facility] Start: 07-23-2024 End: 07-23-2024 ambulatory Meagan Christian Facility:[facility] Start: 07-03-2024 End: 07-03-2024 Patient encounter procedure Yue Cutler CNM -[facility] Work Phone: Start: 07-03-2024 End: 07-03-2024 ambulatory Aide Cesar Facility:[facility] Start: 06-20-2024 End: 06-20-2024 Patient encounter procedure Yue He CN -Lab, [facility] Start: 06-20-2024 End: 06-20-2024 ambulatory Yue Cutler Facility:[facility] Start: 06-11-2024 End: 06-11-2024 Patient encounter procedure Yue He CNM -Lab, [facility] Start: 06-11-2024 End: 06-11-2024 ambulatory Yue Cutler Facility:[facility] Start: 05-30-2024 End: 05-30-2024 Patient encounter procedure Yue Cutler CN -[facility] Work Phone: Start: 05-30-2024 End: 05-30-2024 ambulatory Yue Cutler Facility:[facility] Start: 09-26-[address] Aide Cesar Work Phone: [facility] Start: 09-20-2023 End: 09-20-[address] Aide Cesar Work Phone: [facility] Work Phone: Start: 09-20-2023 End: 09-20-[address] Aide Cesar Work Phone: [facility] Work Phone: Start: 09-20-2023 End: 09-20-2023 ambulatory Aide Cesar Facility:[facility] Start: 02-14-2022 End: 02-14-2022 ambulatory [facility] Work Phone: Start: 02-14-2022 End: 02-14-2022 Patient encounter procedure [facility] Start: 10-24-2021 End: 10-24-2021 Patient encounter procedure [facility], Specimen Procedures Date Procedure Procedure Detail Performing Clinician Start: 07-03-[address] Aide Cesar MD Work Phone: Start: 12-19-2016 Gynecologic examination Annual gynecological examination Nyla Johnston LPN Plan of Treatment Date Care Activity Detail Author Start: 01-05-2017 End: 01-05-2017 Appointment Appointment [facility] Work Phone: Start: 12-19-2016 End: 12-19-2016 Appointment Appointment [facility] Patient Education NON-PHARMACOLO GICAL%20PAI N%20MANAGEMENT%20THERAPIE S%20FOR%20ADULTS [facility] Work Phone: Immunizations Immunization Date Immunization Notes Care Provider Robert paula 01-28-2021 tetanus toxoid, redu oj diphtheria toxoid, and acellular pertussis vaccine, adsorbed [facility] 06-03-2020 Covid (Moderna) [facility] 02-19-2020 influenza, injectabl e, quadrivalent, preservative free Dr. Aide Cesar Work Phone: [facility] 02-19-2020 influenza, seasonal, injectable [facility] Work Phone: 04-02-2019 influenza, injectabl e, quadrivalent, preservative free Dr. Aide Cesar Work Phone: [facility] 04-02-2019 influenza, seasonal, injectable [facility] Work Phone: 02-15-2018 influenza, injectabl e, quadrivalent, preservative free Dr. Aide Cesar Work Phone: [facility] 02-15-2018 influenza, seasonal, injectable [facility] Work Phone: 02-14-2017 influenza, injectabl e, quadrivalent, preservative free Dr. Aide Cesar Work Phone: [facility] 02-14-2017 influenza, seasonal, injectable [facility] Work Phone: 02-18-2016 influenza, injectabl e, quadrivalent, preservative free Dr. Aide Cesar Work Phone: [facility] 02-18-2016 influenza, seasonal, injectable [facility] Work Phone: 02-17-2015 influenza, injectabl e, quadrivalent, preservative free Dr. Aide Cesar Work Phone: [facility] 02-17-2015 influenza, seasonal, injectable [facility] Work Phone: 01-27-2014 influenza, injectabl e, quadrivalent, preservative free Dr. Aide Cesar Work Phone: [facility] 01-27-2014 influenza, seasonal, injectable [facility] Work Phone: 04-14-2013 Influenza virus vaccine [facility] Payers Date Payer Category Payer Unknown [id number] 2023 Self-pay [id number] 2022 Unknown [id number] Private Health [facility] [id number] Private Health Insurance [facility] [id number] Unknown [employer] [id number] Unknown [id number] Unknown [id number] Unknown [id number] Unknown [id number] Unknown [id number] Unknown [id number] Unknown [id number] Unknown [id number] Social History Date Type Detail Facility Start: 05-24-2021 End: 06-14-2022 Tobacco smoking status NHIS Unknown if ever smoked [facility] Start: 1995 Sex Assigned At Female [facility] Start: 06-14-2022 Tobacco smoking stat us NHIS Never smoked tobacco (finding) [facility] Start: 08-06-2024 Sex Female (finding) [facility] Evaluation note 05-30-2024 Note Date & Type Note Facility 05-30-2024 Evaluation note Diagnosis Onset Date Resolution Infertility acute May 30, 2024 10:49am [facility] Work Phone: Evaluation note Note Date & Type Note Facility Evaluation note No assessment information availa ble [facility] Work Phone: Evaluation note Note Date & Type Note Facility Evaluation note Diagnosis Onset Date Encounter for well lo alfaro with routine gynecological exam acute [facility] Work Phone: Reason for referral (narrative) Note Date & Type Note Facility Reason for referral (narrative) No reason for referral information available [facility] Work Phone: Summary Purpose Family History Relationship Condition Age at Onset Recorded Date/T rafael Not Specified Diabetes mellitus Unknown Atrial fibrillation Unknown Multiple sclerosis Unknown sister Malignant neoplasm Unknown Advance Directives Advance Directive Response Recorded Date/ Time Living Will No May 24 5:06pm Power of Respiratory Therapy Technician No May 24 022 5:06pm Chief Complaint and Reason for Visit Chief Complaint Annual (ONLINE TUTOR)(DISCUS INFERTILITY) Reason for Visit Encounter for joie wolff exam with routine gynecological exam Chief Complaint Admit Date TTC > 15 months May 30, 2024 1 0:49am INFERTILITY MANAGMENT July 03 10:56am Reason for Visit Admit Date Infertility May 30, 2024 1 0:49am Additional Source Comments INFORMATION SOURCE (unrecogn ized section and content) DATE CREATED AUTHOR 08/15/2019 [facility] DATE CREATED AUTHOR AUTHOR'S ORGANIZ ATION 03/16/2020 [facility] DATE CREATED AUTHOR AUTHOR'S ORGANIZ ATION 08/08/2024 [facility] Goals (unrecognized section and content) Goals may be documented in a n alternate sectionGoals may be documented in an alternate sectionGoals may be documented in an alternate section Care Teams (unrecognized sec tion and content) Team Status: Active Member Role Status Dates Dr. Waqas Grier III, MD Family Provider Active Dr. Aide Cesar MD Primary Care Provider Active Team Status: Inactive Member Role Status Dates Dr. Aide Cesar MD Primary Care Provider, Referrin g Provider Active Yue Cutler CNM Attending Provider Active Team Status: Inactive Member Role Status Dates Dr. Aide Cesar MD Primary Care Provider Active Yue Cutler CNM Attending Provider, Referring Pro vider Active Team Status: Active Member Role Status Dates Dr. Aide Cesar MD Primary Care Provider Active Team Status: Inactive Member Role Status Dates Dr. Aide Cesar MD Primary Care Provider Active Start: May 30, 2024 End: May 30, 2024 Dr. Aide Cesar MD Referring Provider Active Start: May 30, 2024 End: May 30, 2024 Yue Cutler CNM Attending Provider Active S tart: May 30, 2024 End: May 30, 2024 Team Status: Inactive Member Role Status Dates Dr. Aide Cesar MD Primary Care Provider Active Start: June 11, 2024 End: June 11, 2024 Yue Cutler CNM Attending Provider Active S tart: June 11, 2024 End: June 11, 2024 Yue Cutler CNM Referring Provider Active S tart: June 11, 2024 End: June 11, 2024 Team Status: Inactive Member Role Status Dates Dr. Aide Cesar MD Primary Care Provider Active Start: June 20, 2024 End: June 20, 2024 Yue Cutler CNM Attending Provider Active S tart: June 20, 2024 End: June 20, 2024 Yue Cutler CNM Referring Provider Active S tart: June 20, 2024 End: June 20, 2024 Team Status: Inactive Member Role Status Dates Dr. Aide Cesar MD Primary Care Provider Active Start: July 03, 2024 End: July 03, 2024 Yue Cutler CNM Attending Provider Active S tart: July 03, 2024 End: July 03, 2024 Yue Cutler CNM Referring Provider Active S tart: July 03, 2024 End: July 03, 2024 Team Status: Inactive Member Role Status Dates Dr. Aide Cesar MD Primary Care Provider Active Start: July 23, 2024 End: July 23, 2024 Dr. Meagan Christian MD Attending Provider Active Start: July 23, 2024 End: July 23, 2024 Dr. Meagan Christian MD Referring Provider Active Start: July 23, 2024 End: July 23, 2024 FOR RECORDS PERTAINING TO PATIENTS WHO ARE OR HAVE BEEN ENROLLED IN A CHEMICAL DEPENDENCY/SUBSTANCEABUSE PROGRAM, SOME INFORMATION MAY BE OMITTED. This clinical summary was aggregated from multiple sources. Caution should be exercised in using it in the provision of clinical care. This summary normalizes information from multiple sources, and as a consequence, information in this document may materially change the coding, format and clinical context of patient data. In addition, data may be omitted in some cases. CLINICAL DECISIONS SHOULD BE BASED ON THE PRIMARY CLINICAL RECORDS. [facility] [employer] [facility]. provides no warranty or guarantee of the accuracy or completeness of information in this document.
--- NOTE | 2025-01-31 01:36 | PN_ITS ---
Progress Note DOS- 01/22/25 Preop diagnosis: Infertility Postop diagnosis: Same plus bilateral tubal patency Procedure: Hysterosalpingogram Surgeon: Meagan Christian Implantable devices: None Complications: None Findings: Bilateral tubal patency and normal uterine cavity Operative details: Patient was taken to the x-ray room and was placed on the x- ray table and was in the dorsal lithotomy position. Speculum was placed in the vagina and the cervix prepped with Betadine and the HSG catheter was easily introduced into the uterus and speculum removed. Radiologist was brought in and while pushing radiopaque dye into the uterus via the HSG catheter the radiologist took multiple images and views and confirmed bilateral tubal patency seen. No gross uterine filling defects or abnormalities were seen. All instruments removed from the vagina and the uterus without complication. Patient tolerated the procedure well. Procedures Urinary/Genital [id number]: [id number] HSG/SIS
== END | disposition home or self-care (01) ==
LOC: RAD 11:51
PROVIDERS: PCP Family Medicine; Referring Provider Advanced Practice Midwife; Visit Provider Advanced Practice Midwife
DX: N97.9 Female infertility, unspecified (principal)
CPT/HCPCS: 58340; 74740; Q9967

== ENCOUNTER → 2025-04-29 | Outpatient (CLI) | payer OTHER, SELFPAY ==
--- NOTE | 2025-04-29 13:48 | RAD_ITS ---
PROCEDURE: CHEST PA AND LATERAL 04/29/2025 REASON FOR EXAM: COUGH TECHNIQUE: Procedure Code: RADCXR Modality: DX Procedure: CHEST PA AND LATERAL FINDINGS: The heart is normal in size. The lungs are clear. No acute osseous abnormalities. RAD/Chest PA and Lateral IMPRESSION: NO ACUTE FINDINGS. Reading [facility] [place]
== END | disposition home or self-care (01) ==
LOC: MTRAD 13:48
PROVIDERS: PCP Family Medicine; Referring Provider Physician Assistant; Visit Provider Physician Assistant
DX: R05.9 Cough, unspecified (principal)
CPT/HCPCS: 71046